=== PATIENT | male | born 1955 | race Caucasian/White ===

== ENCOUNTER 2016-04-08 18:01 | Inpatient (IN) ==
[2016-04-08] MEDS ORDERED: IOPAMIDOL 100 ML BOTTLE IJ ONE (18:02)
[2016-04-08] MEDS ORDERED: IPRATROPIUM/ALBUTEROL 3 ML AMPUL.NEB NEB ONE (18:35)
[2016-04-08] MEDS ORDERED: 0.9 % SODIUM CHLORIDE 1,000 ML IV ONE (18:35)
[2016-04-08] MEDS ORDERED: VANCOMYCIN 1,000 MG in 0.9 % SODIUM CHLORIDE 250 ML IV ONE (18:37)
[2016-04-08] MEDS ORDERED: PIPERACILLIN SODIUM/TAZOBACTAM 3.375 GM in DEXTROSE 5% IN WATER 50 ML IV SCH ×2 (18:45→23:22)
[2016-04-08] MEDS ORDERED: DEXTROSE 5% IN WATER 1,000 ML IV SCH (19:00)
[2016-04-08] MEDS ORDERED: PIPERACILLIN SODIUM/TAZOBACTAM 3.375 GM VIAL IV ONE (19:12)
[2016-04-08 19:37] LABS: Basophils # (Auto) 0.1 K/mcL (0.0-0.3); Basophils % (Auto) 0.4 % (0.0-2.0); Eosinophils # (Auto) 0.3 K/mcL (0.0-0.7); Eosinophils % (Auto) 1.7 % (0.0-7.0); Granulocytes % (Auto) 68.9 % (38.0-78.0); Lymphocytes # (Auto) 4.2 K/mcL (1.5-4.8); Lymphocytes % (Auto) 22.5 % (15.5-49.0); Mean Cell Volume 79.9 fL (80.0-100.0); Mean Corpuscular Hemoglobin 24.8 pg (26.0-34.0); Monocytes # (Auto) 1.2 K/mcL (0.1-0.9); Monocytes % (Auto) 6.5 % (1.0-9.0); Platelet Count 495 K/mcL (140-440); RBC 4.67 M/mcL (4.50-5.90)
[2016-04-08 20:09] LABS: ALT/SGPT 46 U/l (0-40); Albumin 3.6 gm/dL (3.2-5.2); Albumin/Globulin Ratio 0.7 (1.0-2.3); Alkaline Phosphatase 90 U/L (39-117); Blood Urea Nitrogen 60 mg/dl (8-23); Lipase 35 U/L (7-60)
--- NOTE | 2016-04-08 20:33 | Emergency Department Note ---
General Adult HPI - General Chief complaint: Shortness of Breath/Dyspnea Stated complaint: pne, weakness Time Seen by Provider: 04/08/16 18:11 Source: family, EMS Mode of arrival: EMS Limitations: altered mental status - History of Present Illness HPI Narrative: 60-year-old male who came here from [facility] in [place] with a fever of 101.6. He was initially seen on the first of the month and was felt to have pneumonia. He has not been getting better on antibiotics. Notable shortness of breath occulta controlling secretions wheezing and upper airway rattle. Some diarrhea is reported. No nausea or vomiting all history is from his mother and sister, the patient is nonverbal but can answer yes or no questions by moving his head or using fingers - Related Data Home Medications Medication Instructions Recorded Confirmed Azithromycin [Zithromax] 200 mg G-TUBE QAMAC 04/08/16 04/08/16 Bisacodyl [Dulcolax] 10 mg NV PRN PRN 04/08/16 04/08/16 Cholecalciferol (Vitamin D3) 4,000 unit G-TUBE DAILY 04/08/16 04/08/16 [Vitamin D3] Doxazosin [Cardura] 2 mg G-TUBE HS 04/08/16 04/08/16 Furosemide [Lasix] 40 mg G-TUBE DAILY 04/08/16 04/08/16 Glucagon,Human Recombinant 1 mg IM PRN PRN 04/08/16 04/08/16 [Glucagon Emergency Kit] HYDROcodone/ACETAMINOPHEN [[place] 1 each G-TUBE Q4HP PRN 04/08/16 04/08/16 10-325 Tablet] Insulin Glargine, Human [Lantus] 30 unit SQ DAILY 04/08/16 04/08/16 Insulin Regular, Human [HumuLIN R] 0 unit SQ Q6HRT PRN 04/08/16 04/08/16 Insulin Regular, Human [HumuLIN R] 7 unit SQ Q6HRT 04/08/16 04/08/16 Ipratropium/Albuterol [Duoneb] 3 ml NEB Q4HP PRN 04/08/16 04/08/16 Magnesium Hydroxide [Milk of 30 ml G-TUBE DAILY PRN 04/08/16 04/08/16 Magnesia] Menthol/Zinc Oxide [Calmoseptine 3.5 gm TP TID PRN 04/08/16 04/08/16 Ointment Packet] Metoprolol Tartrate 50 mg G-TUBE TID 04/08/16 04/08/16 Na Phos,M-B/Na Phos,Di-Ba [Fleets 1 dose NV PRN PRN 04/08/16 04/08/16 Adult] Nut.tx.gluc.intoler,Lac-Fr,Soy 474 ml G-TUBE TID 04/08/16 04/08/16 [Glucerna 1 Leno] Omeprazole 20 mg G-TUBE DAILY 04/08/16 04/08/16 Polyethylene Glycol 3350 [Miralax] 17 gm G-TUBE DAILY 04/08/16 04/08/16 Pravastatin [Pravachol] 20 mg PO HS 04/08/16 04/08/16 Sennosides [Senna] 8.8 mg G-TUBE BID 04/08/16 04/08/16 predniSONE [Prednisone] 5 mg G-TUBE DAILY 04/08/16 04/08/16 risperiDONE [Risperidone] 0.25 mg G-TUBE DAILY 04/08/16 04/08/16 Allergies Allergy/AdvReac Type Severity Reaction Status Date / Time latex [LATEX] Allergy Mild RASH Verified 03/20/16 16:42 amantadine AdvReac Unknown Hallucinati Verified 03/20/16 16:42 ng oseltamivir AdvReac Unknown Hallucinati Verified 03/20/16 16:42 ons Review of Systems Limitations: ROS unobtainable due to patients medical condition Past Medical History - Past Medical History Source: old records reviewed, obtained from family Medical history: Reports: asthma, COPD, dementia, diabetes, GERD, hyperlipidemia , hypertension, seizures, TIA, other (TBI, AAA, Pancreatic cyst, pressure ulcer) Surgical history ED: Reports: cholecystectomy, other (pancreatic tube) - Social History smoking status: Former smoker Alcohol use: Reports: None (does not drink now had a history of heavy usage of alcohol. in past. Quit 10 y ago) Drug use: Reports: none Physical Exam Normocephalic atraumatic. Conjunctiva somewhat bleary with yellowish eye discharge bilaterally. Moving eyes normally. Patient is nonverbal but does respond some And interacts with eyes and with hands and head movements. Audible nasal congestion without discharge. Oropharynx is dry; mouth breather. Suctioning got approximately 400 mL secretions. Improved respirations after this. Neck is supple without lymphadenopathy or thyromegaly. Heart is regular rate and rhythm. Lungs with rales and wheezes bilaterally worse to the [place]. Abdomen soft nontender overweight. Pancreatic drainage tube is in place with minimal redness and discharge around the opening. Trace to +1 pedal edema bilaterally. Right foot with bandage over pressure ulcer. +2 radial pulse. Alert. Neuro assessment noted as above - General Limitations: altered mental status Course Vital Signs Temperature 99.9 F H 04/08/16 18:04 Pulse Rate 124 H 04/08/16 18:04 Respiratory Rate 20 04/08/16 18:04 Blood Pressure 143/76 04/08/16 18:04 Pulse Oximetry (%) 92 04/08/16 18:04 Temperature 99.9 F H 04/08/16 18:04 Pulse Rate 117 H 04/08/16 20:23 Respiratory Rate 28 H 04/08/16 20:23 Blood Pressure 125/78 04/08/16 20:23 Pulse Oximetry (%) 95 04/08/16 20:23 Medical Decision Making - Medical Records Medical records reviewed: Yes I reviewed the patient's medical records. Reviewed records from nursing facility - Lab Data Lab results reviewed: Yes I reviewed the patient's lab results. Result diagrams: 04/08/16 18:36 04/08/16 18:36 Lab Results 04/08/16 04/08/16 04/08/16 Range/Units 18:36 18:36 18:36 WBC 18.7 H (4.5-11.0) K/mcL RBC 4.67 (4.50-5.90) M/mcL Hgb 11.6 L (13.5-16.5) g/dL Hct 37.3 L (41.0-55.0) % POC Hct 38.0 L (41.0-55.0) % MCV 79.9 L (80.0-100.0) fL MCH 24.8 L (26.0-34.0) pg MCHC 31.0 (31.0-36.0) g/dL RDW 21.0 H (11.5-14.5) % Plt Count 495 H (140-440) K/mcL MPV 9.3 (7.4-10.4) fL Gran % 68.9 (38.0-78.0) % Lymph % (Auto) 22.5 (15.5-49.0) % [place] % (Auto) 6.5 (1.0-9.0) % Eos % (Auto) 1.7 (0.0-7.0) % Baso % (Auto) 0.4 (0.0-2.0) % Gran # 12.9 H (1.8-8.0) K/mcL Lymph # 4.2 (1.5-4.8) K/mcL [place] # 1.2 H (0.1-0.9) K/mcL Eos # 0.3 (0.0-0.7) K/mcL Baso # 0.1 (0.0-0.3) K/mcL VBG Lactic Acid 1.9 (0.5-2.2) mmol/L POC Sodium 159 H (133-145) mmol/L Sodium 156 H (133-145) mmol/L POC Potassium 4.2 (3.3-5.1) mmol/L Potassium 4.2 (3.3-5.1) mmol/L POC Chloride 116 H (96-108) mmol/L Chloride 112 H (96-108) mmol/L Carbon Dioxide 29 (22-30) mmol/L POC Total CO2 33 H (22-30) mmol/L Anion Gap 15.0 (8-16) POC BUN 55 H (8-23) mg/dl BUN 60 H (8-23) mg/dl Creatinine 1.1 (0.7-1.2) mg/dl POC Creatinine 1.2 (0.7-1.2) mg/dl GFR Calculation 72 Glucose 138 H (70-105) mg/dL POC Glucose 141 H (70-105) mg/dL Osmolality (280-300) mOSM/kg Calcium 10.0 (8.6-10.4) mg/dl POC WB Ioniz Calcium 1.19 (1.16-1.32) mmol/L Total Bilirubin 0.2 (0.0-1.0) mg/dL AST 38 H (0-37) U/l ALT 46 H (0-40) U/l Alkaline Phosphatase 90 (39-117) U/L Total Protein 9.1 H (5.9-8.4) gm/dL Albumin 3.6 (3.2-5.2) gm/dL Globulin 5.5 H (2.2-3.7) gm/dL Albumin/Globulin Ratio 0.7 L (1.0-2.3) Lipase 35 (7-60) U/L Urine Osmolality (80-1000) mOsm/kg Influenza A (Rapid) Influenza B (Rapid) 04/08/16 04/08/16 04/08/16 Range/Units 18:36 19:20 20:00 WBC (4.5-11.0) K/mcL RBC (4.50-5.90) M/mcL Hgb (13.5-16.5) g/dL Hct (41.0-55.0) % POC Hct (41.0-55.0) % MCV (80.0-100.0) fL MCH (26.0-34.0) pg MCHC (31.0-36.0) g/dL RDW (11.5-14.5) % Plt Count (140-440) K/mcL MPV (7.4-10.4) fL Gran % (38.0-78.0) % Lymph % (Auto) (15.5-49.0) % [place] % (Auto) (1.0-9.0) % Eos % (Auto) (0.0-7.0) % Baso % (Auto) (0.0-2.0) % Gran # (1.8-8.0) K/mcL Lymph # (1.5-4.8) K/mcL [place] # (0.1-0.9) K/mcL Eos # (0.0-0.7) K/mcL Baso # (0.0-0.3) K/mcL VBG Lactic Acid (0.5-2.2) mmol/L POC Sodium (133-145) mmol/L Sodium (133-145) mmol/L POC Potassium (3.3-5.1) mmol/L Potassium (3.3-5.1) mmol/L POC Chloride (96-108) mmol/L Chloride (96-108) mmol/L Carbon Dioxide (22-30) mmol/L POC Total CO2 (22-30) mmol/L Anion Gap (8-16) POC BUN (8-23) mg/dl BUN (8-23) mg/dl Creatinine (0.7-1.2) mg/dl POC Creatinine (0.7-1.2) mg/dl GFR Calculation Glucose (70-105) mg/dL POC Glucose (70-105) mg/dL Osmolality 347 H (280-300) mOSM/kg Calcium (8.6-10.4) mg/dl POC WB Ioniz Calcium (1.16-1.32) mmol/L Total Bilirubin (0.0-1.0) mg/dL AST (0-37) U/l ALT (0-40) U/l Alkaline Phosphatase (39-117) U/L Total Protein (5.9-8.4) gm/dL Albumin (3.2-5.2) gm/dL Globulin (2.2-3.7) gm/dL Albumin/Globulin Ratio (1.0-2.3) Lipase (7-60) U/L Urine Osmolality 632 (80-1000) mOsm/kg Influenza A (Rapid) Presumed negative Influenza B (Rapid) Presumed negative rterial blood gas shows pH of 7.51PCO2 44 PO2 65 on 2-1/2 Lpm O2 nasal cannula - Radiology Data Radiology results reviewed: Yes I reviewed the patient's radiology results. CT chest with contrast shows bilateral pneumonia Disposition Clinical Impression: Hypernatremia Pneumonia Qualifiers: Pneumonia type: due to unspecified organism Laterality: bilateral Lung location : lower lobe of lung Qualified Code(s): J18.9 - Pneumonia, unspecified organism Summary: Started on oxygen, blood cultures ordered and then antibiotics- noted history of allergies. ABG shows some hyperventilation and hypoxia. CT scan shows bilateral pneumonia Initial labs show hypernatremia so freewater is given IV slowly. Discussed with Dr. chacon who agreed to accept the patient in transfer for ICU care Disposition: Xfer As Inpt ([facility]) Condition: Critical Referrals: Rosa Mccormick MD [Primary Care Provider] - Wayne Chacon MD [Physician] -
[2016-04-08] MEDS ORDERED: HYDROcodone/APAP 10/325MG TABLET PO ONE (21:01)
[2016-04-08] MEDS ORDERED: HYDROcodone/APAP 5/325MG TABLET PO ONE (21:19)
--- NOTE | 2016-04-08 22:10 | Internal Med History&Physical ---
Medical - H&P: HPI Patient information: Note initiated : 04/08/16 at 10:03 pm Service Date, if different from initiated Date: [] Patient: Amie Merchant a 60 y/o M admitted on for pne, weakness. Chief Complaint: [] History of present illness: Mr. 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 The patient has had a very long and complex course, starting his last admission in this facility, where he was admitted for acute pancreatitis, and was in ARDS respiratory failure, requiring transfer to MICU at [facility], He had a prolonged course in that facility there, after which he was transferred to [facility]. He is PEG depended on his feeds, and he came back home in January. He was at home for a few days, but was sick again, and was noted to have a pancreatic abscess? and admitted again in [place] where a abdominal drain was placed. He was supposed to go for follow up 2 weeks ago, but was not able to go due to lack of transportation for follow up. AFter his pancreatic abscess, he was transferred to [place] for rehab at [facility] in [place]. The patient presented here with PNA approximately 2 weeks ago, where he was given bactrim. He was also not ed to have diarrhea by his family for nearly 2 weeks at the alf. His condition was detoriating gradually when today he was noted to be febrile and was therefore transferred here. I reviwed his medical history with his sister and his mother who have been care givers for him. The patient is non verbal, but can understand us, and can follow simple commands. The patient in the ER was not ed to be tachycardic 130, tachypneic 28-30 , low oxygen saturation needing 3 L oxygen. The patients lab work was significant for elevated wbc count, hypernatremia. Patient was therefore admitted to the hospital for further management. The patient notes he does not feel well, and only points to his abdomen on asking about pain. ROS unobtainable: due to mental status Medical - H&P: [facility] Medical history: Medical History Sepsis (Acute) Community acquired pneumonia (Acute) Pneumonia (Acute) Pancreatitis (Acute) Sepsis (Acute) Septic shock (Acute) PEG tube malfunction (Acute) Postop check (Acute) Pancreatitis (Acute) Hypernatremia (Acute) Surgical history: pancreatic abscess/ drain in place 03/13 sayre. 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, TBI in 1998 due to head injury Medical - H&P: Meds Home Medications Medication Instructions Recorded Confirmed Type Azithromycin [Zithromax] 200 mg G-TUBE QAMAC 04/08/16 04/08/16 History Bisacodyl [Dulcolax] [address] PRN PRN 04/08/16 04/08/16 History Cholecalciferol (Vitamin D3) 4,000 unit G-TUBE DAILY 04/08/16 04/08/16 History [Vitamin D3] Doxazosin [Cardura] 2 mg G-TUBE HS 04/08/16 04/08/16 History Furosemide [Lasix] 40 mg G-TUBE DAILY 04/08/16 04/08/16 History Glucagon,Human Recombinant 1 mg IM PRN PRN 04/08/16 04/08/16 History [Glucagon Emergency Kit] HYDROcodone/ACETAMINOPHEN [[place] 1 each G-TUBE Q4HP PRN 04/08/16 04/08/16 History 10-325 Tablet] Insulin Glargine, Human [Lantus] 30 unit SQ DAILY 04/08/16 04/08/16 History Insulin Regular, Human [HumuLIN R] 0 unit SQ Q6HRT PRN 04/08/16 04/08/16 History Insulin Regular, Human [HumuLIN R] 7 unit SQ Q6HRT 04/08/16 04/08/16 History Ipratropium/Albuterol [Duoneb] 3 ml NEB Q4HP PRN 04/08/16 04/08/16 History Magnesium Hydroxide [Milk of 30 ml G-TUBE DAILY PRN 04/08/16 04/08/16 History Magnesia] Menthol/Zinc Oxide [Calmoseptine 3.5 gm TP TID PRN 04/08/16 04/08/16 History Ointment Packet] Metoprolol Tartrate 50 mg G-TUBE TID 04/08/16 04/08/16 History Na Phos,M-B/Na Phos,Di-Ba [Fleets [address] PRN PRN 04/08/16 04/08/16 History Adult] Nut.tx.gluc.intoler,Lac-Fr,Soy 474 ml G-TUBE TID 04/08/16 04/08/16 History [Glucerna 1 Leno] Omeprazole 20 mg G-TUBE DAILY 04/08/16 04/08/16 History Polyethylene Glycol 3350 [Miralax] 17 gm G-TUBE DAILY 04/08/16 04/08/16 History Pravastatin [Pravachol] 20 mg PO HS 04/08/16 04/08/16 History Sennosides [Senna] 8.8 mg G-TUBE BID 04/08/16 04/08/16 History predniSONE [Prednisone] 5 mg G-TUBE DAILY 04/08/16 04/08/16 History risperiDONE [Risperidone] 0.25 mg G-TUBE DAILY 04/08/16 04/08/16 History Allergies Allergy/AdvReac Type Severity Reaction Status Date / Time latex [LATEX] Allergy Mild RASH Verified 03/20/16 16:42 amantadine AdvReac Unknown Hallucinati Verified 03/20/16 16:42 ng oseltamivir AdvReac Unknown Hallucinati Verified 03/20/16 16:42 ons Medical - H&P: Exam - Constitutional Vitals: Temp Pulse Resp BP Pulse Ox 99.9 F H 114 H 28 H 130/77 96 04/08/16 18:04 04/08/16 21:17 04/08/16 20:23 04/08/16 21:17 04/08/16 21:17 General appearance: cooperative, no acute distress - Head Head exam: Present: atraumatic, normocephalic - Eye Eye exam: Absent: periorbital swelling, periorbital tenderness, scleral icterus Pupils: Present: PERRL - ENT ENT exam: Present: mucous membranes dry - Neck Neck exam: Present: normal inspection - Respiratory Additional comments: air entry equal on both sides bibasilar mild crackles poor air entry and pronged expiration, no wheezing noted. no rhonchi. - Cardiovascular Cardiovascular exam: Present: normal rate and rhythm, +S1, +S2, tachycardia - GI/Abdominal Additional comments: abdomen, distended, not sure if basline One drain with brownish discharged noted, G tube in place ABdomen soft but tender to palpation especially in the epigastric, left flank regions. Hypoactive bowel sounds. - Extremities Exam Additional comments: left leg has a decubititus ulcer on the left leg. righ leg no ulcerations noted. - Neurological Exam Additional comments: awake, follows you obeys commmands like grasp fingers, unable to move his legs. Medical - H&P: Reslt - Labs CBC & Chem 7: 04/08/16 18:36 04/08/16 18:36 Labs: Short CBC 04/08/16 Range/Units 18:36 WBC 18.7 H (4.5-11.0) K/mcL Hgb 11.6 L (13.5-16.5) g/dL Hct 37.3 L (41.0-55.0) % Plt Count 495 H (140-440) K/mcL BMP 04/08/16 18:36 Sodium 156 H Potassium 4.2 Chloride 112 H Carbon Dioxide 29 BUN 60 H Creatinine 1.1 Glucose 138 H Calcium 10.0 Liver Function 04/08/16 Range/Units 18:36 Total Bilirubin 0.2 (0.0-1.0) mg/dL AST 38 H (0-37) U/l ALT 46 H (0-40) U/l Alkaline Phosphatase 90 (39-117) U/L Albumin 3.6 (3.2-5.2) gm/dL Medical - H&P: A/P (1) Severe sepsis Current visit: Yes Status: Acute (2) HCAP (healthcare-associated pneumonia) Current visit: Yes Status: Acute (3) Pancreatic abscess Current visit: Yes Status: Acute (4) Diabetes mellitus Current visit: Yes Status: Acute (5) Diarrhea Current visit: Yes Status: Acute (6) Hypernatremia Current visit: Yes Status: Acute A/P narrative hcap pna/ severe sepsis/ Acute hypoxic respiratory failure The patient presents with bilateral Pneumonia on CT chest, this is Hcap pna due to NH status and recent hospitalization. [place] score of 16, mortality of 25% he will hydrated with normal saline, BP is stable at this point. IV vancomycin and zosyn. Await cultures, flu is negative. Oxygen supplementation, ok to intubate, ok for bipap support, family and patient does not want chest compresions. Gentle hydration given his cardiomyopathy status. COPD H/o copd and prolonged exp phase, given his condition, will treat as copd exacerbation, duonebs, abx and steroids, on Iv solumedrol Hypernatremia To be treated with IV resusitation, Low urin sodium suggest volume depletion, will monitor sodium level after adequate volume repletion. It seems that patient had diarrhea, as well was on lasix in the [place] which resulted in hypernatremia. Diarrhea R/o Cdiff On reviewing his home meds, there are multiple medications for stool sofners, not sure if they were scheuled medication, but monitor for now Pancreatic abscess/ s/p surgery ,adn drain inp lace, which is actively draining , Plan to get a CT scan abdomen and pelvis in AM to assess this further, pt has already missed his appointment at [facility]. CHF, LVEF 25-30%, hold meds for now, bb and diuretic,s resume once more stable. DM, continue lantus, monitor finger stick q 6 hrs with sliding scale. DVT lovenox NPO for now, Dietary consult for G tube feeding.
[2016-04-08 23:01] LABS: Appearance,Urine CLEAR; Bacteria,Urine 0 /hpf (0); Bilirubin,Urine NEG (NEG); Color,Urine YELLOW; Glucose,Urine (UA) NEGATIVE (NEG); Leukocyte Esterase,Urine NEG /uL (NEG); Nitrate,Urine NEG (NEG); Protein,Urine 100 mg/dL (NEG); Specific Gravity,Urine 1.023 (1.000-1.035); Urine Blood NEG mg/dL (<0.03); Urine Granular Cast 1 /lpf (0); Urine RBC 9 /hpf (0-1); Urine Squamous Epithelial Cell < 1 /hpf (0-4); Urine Transitional Epi Cells < 1 /hpf (0-2); Urine WBC 3 /hpf (0-4); Urobilinogen,Urine NEG (NEG)
[2016-04-08] MEDS ORDERED: ACETAMINOPHEN 650 MG SUPP.RECT PR PRN (23:22)
[2016-04-08] MEDS ORDERED: PROMETHAZINE 25 MG/ML VIAL IV PRN (23:22)
[2016-04-08] MEDS ORDERED: ACETAMINOPHEN 325 MG TABLET PO PRN (23:22)
[2016-04-08] MEDS ORDERED: ONDANSETRON 4 MG/2 ML VIAL IV PRN (23:22)
[2016-04-08] MEDS ORDERED: NALOXONE HCL 0.4 MG/ML VIAL IV PRN (23:22)
[2016-04-08] MEDS ORDERED: BISACODYL 10 MG SUPP.RECT PR PRN (23:22)
[2016-04-08] MEDS ORDERED: DEXTROSE 50% 50 ML VIAL IV PRN (23:22)
[2016-04-09] MEDS: 0.9 % SODIUM CHLORIDE 1,000 ML IV SCH ×2 (00:30→08:03)
[2016-04-09 01:14] LABS: ALT/SGPT 44 U/l (0-40); Albumin 3.2 gm/dL (3.2-5.2); Albumin/Globulin Ratio 0.7 (1.0-2.3); Alkaline Phosphatase 77 U/L (39-117); Bilirubin,Direct < 0.2 mg/dL (0.0-0.3); Blood Urea Nitrogen 58 mg/dl (8-23); Gamma Glutamyl Transpeptidase 43 U/L (8-61); Magnesium 2.4 mg/dL (1.6-2.5); Phosphorous 4.9 mg/dL (2.7-4.5); Uric Acid 10.2 mg/dL (2.5-8.0)
[2016-04-09] MEDS ORDERED: methylPREDNISolone SOD SUCC 125 MG/2 ML VIAL ONE (01:46)
[2016-04-09] MEDS ORDERED: PIPERACILLIN SODIUM/TAZOBACTAM 3.375 GM VIAL IV ONE (01:46)
[2016-04-09] MEDS: PIPERACILLIN SODIUM/TAZOBACTAM 3.375 GM in DEXTROSE 5% IN WATER 50 ML IV SCH ×5 (02:47→17:43)
[2016-04-09] MEDS: IPRATROPIUM/ALBUTEROL 3 ML AMPUL.NEB NEB SCH ×4 (02:59→19:58)
[2016-04-09] MEDS ORDERED: IPRATROPIUM/ALBUTEROL 3 ML AMPUL.NEB NEB ONE (03:11)
[2016-04-09] MEDS: methylPREDNISolone SOD SUCC 40 MG/ML VIAL IV SCH ×4 (03:29→21:36)
[2016-04-09] MEDS: INSULIN LISPRO 1 UNIT/0.01 ML UNIT SQ SCH ×4 (03:33→17:55)
[2016-04-09] MEDS: 0.9 % SODIUM CHLORIDE 10 ML SYRINGE IV SCH ×4 (03:36→21:38)
[2016-04-09] MEDS ORDERED: INSULIN LISPRO 1 UNIT/0.01 ML UNIT SQ ONE ×2 (03:44→06:29)
[2016-04-09 06:35] LABS: Basophils # (Auto) 0.1 K/mcL (0.0-0.3); Basophils % (Auto) 0.6 % (0.0-2.0); Eosinophils # (Auto) 0.3 K/mcL (0.0-0.7); Eosinophils % (Auto) 1.9 % (0.0-7.0); Granulocytes % (Auto) 72.3 % (38.0-78.0); Lymphocytes # (Auto) 3.3 K/mcL (1.5-4.8); Lymphocytes % (Auto) 20.1 % (15.5-49.0); Mean Cell Volume 81.4 fL (80.0-100.0); Mean Corpuscular HGB Conc 30.3 g/dL (31.0-36.0); Mean Corpuscular Hemoglobin 24.7 pg (26.0-34.0); Monocytes # (Auto) 0.8 K/mcL (0.1-0.9); Monocytes % (Auto) 5.1 % (1.0-9.0); Platelet Count 429 K/mcL (140-440); RBC 4.09 M/mcL (4.50-5.90); Red Cell Distribution Width 21.1 % (11.5-14.5)
[2016-04-09 06:52] LABS: ALT/SGPT 42 U/l (0-40); Albumin/Globulin Ratio 0.7 (1.0-2.3); Alkaline Phosphatase 76 U/L (39-117); Bilirubin,Direct < 0.2 mg/dL (0.0-0.3); Blood Urea Nitrogen 52 mg/dl (8-23); Gamma Glutamyl Transpeptidase 43 U/L (8-61); Magnesium 2.3 mg/dL (1.6-2.5); Phosphorous 4.5 mg/dL (2.7-4.5); Uric Acid 9.6 mg/dL (2.5-8.0)
--- NOTE | 2016-04-09 08:02 | Cat Scan Report ---
CLINICAL INFORMATION: Pneumonia and weakness FINDINGS: There is a moderate-sized densely consolidating alveolar infiltrate in the right lower lobe. There are multiple air bronchograms in this region. A milder consolidating infiltrate is present posteriorly medially in the left lower lobe which also contains air bronchograms. There is also a small area of consolidated lung parenchyma in the posterior segment of the right upper lobe, abutting the major fissure. A more subtle alveolar infiltrate is present posteriorly in the left upper lobe. A few small scattered bulla. No pleural effusion is present. A few benign-appearing reactive lymph nodes are present in the mediastinum. Central pulmonary arteries are normal without evidence of emboli. The aorta is normal in caliber. Heart size is normal. There is a moderate amount calcified plaque in the left anterior descending coronary artery with smaller plaques in the circumflex. The left lobe of the liver is enlarged and bulbous. Gallbladder has been removed. There is a percutaneous drainage catheter in the distal body of the stomach. Immediately posterior to the stomach and along the anterior border of the pancreas there is a complex abscess measuring 2.7 x 3.0 cm. It contains several small bubbles of air. This has diminished in size since prior study done at [facility] on 03/07/16. The full extent of this abscess goes beyond the field of view of the chest CT. IMPRESSION: Moderate bilateral pneumonia with the greatest involvement in the right lower lobe Atherosclerotic coronary artery disease Shrinking pancreatic abscess Interpreted and Authenticated by: Miguel Hutchinson 04/09/16
[2016-04-09] MEDS ORDERED: risperiDONE 0.25 MG TABLET PO SCH (09:00)
[2016-04-09] MEDS ORDERED: VITAMIN D3 1,000 UNIT TABLET PO SCH (09:00)
--- NOTE | 2016-04-09 10:35 | Cat Scan Report ---
History: Follow-up pancreatic abscess Findings: The patient was imaged without oral or intravenous contrast. Sagittal and coronal reformats were created. Patient has pneumonia in both lower lobes, right worse than left. This was described in full detail on the chest CT done on 04/08/16. This has not changed. The left lobe of the liver is enlarged and has a bulbous contour. The right lobe is relatively small. Does the patient have cirrhosis? Is no evidence of a liver mass and the bile ducts are nondilated. The spleen is normal in size and homogeneous. There is a percutaneous pigtail catheter placed into the stomach body the stomach. There is some nodular thickening of the wall of the stomach. Along the posterior wall of the body and involving the anterior aspect of the tail the pancreas there is a complex abscess collection or complex pseudocyst which measures 2 x 4 x 7 cm. Contains multiple bubbles of air. Along the lateral aspect of this collection there is a percutaneous pigtail drainage catheter. The collection has diminished in size since the time of the catheter insertion done at [facility] on 03/07/16. The head neck and body the pancreas are noninflamed. No ascites or free intraperitoneal air are present. There is a nonobstructing 1.5 mm calculus posteriorly in the lower third of left kidney. There is some residual contrast in the kidney following yesterday CT scan. The gallbladder is been removed. The bile ducts are nondilated. The adrenals are normal. Scattered plaques are present along the wall of the aorta and at the origins of the renal arteries. There is no adenopathy. Impression: 2 x 4 x 7 cm complex collection arising from the tail the pancreas extending to the posterior wall of the body of the stomach. This may be an abscess or complex pseudocyst. It has improved over the past one month. Bibasilar pneumonia Interpreted and Authenticated by: Miguel Hutchinson 04/09/16
--- NOTE | 2016-04-09 10:59 | Internal Med Progress Note ---
Medical - PN: Subj Patient information: Note initiated : 04/09/16 at 10:57 am Service Date, if different from initiated Date: [] Patient: Amie Merchant 60 y/o M admitted on 04/08/16 for pne, weakness. Chief Complaint: [] Interval history: The patient seen examined, this AM, no acute overnight events, Vitals reviwed, labs reviwed, microbiology reviwed. Patient is non verbal, and therefore history not available The patient seems to be doing better, his wbc counts is trending down, Na is at 154,improved. Pertinent ROS: due to non verbal status, ROS unavailable Additional PMFSH (Level 3 Only): Pancreatic drain placement on 03/07/16, for abscess. - Constitutional Vitals: Vital Signs Temp Pulse Resp BP Pulse Ox 98.6 F 119 H 22 112/73 95 04/09/16 08:00 04/09/16 08:00 04/09/16 08:00 04/09/16 08:00 04/09/16 06:00 Period Temp Pulse Resp BP Sys/Escobar Pulse Ox Last 24 Hr 98.6 F-98.8 F 100-129 11-115 112-161/64-93 94-96 Intake and Output 04/08/16 04/09/16 04/09/16 21:59 05:59 13:59 Intake Total 50 / 50 1050 / 1050 Output Total 600 / 600 30 / 30 Balance -550 / -550 1020 / 1020 Weight 181 lb Intake & Output: Intake & Output 04/08/16 04/09/16 04/09/16 21:59 05:59 13:59 Intake Total 50 / 50 1050 / 1050 Output Total 600 / 600 30 / 30 Balance -550 / -550 1020 / 1020 Weight 181 lb Intake: IV 50 / 50 1050 / 1050 Sodium Chloride 0.9% 1, 1000 / 1000 000 ml @ 150 mls/hr IV . Q6H40M [facility] Rx#:[id number] Dextrose 5% in Water 50 50 / 50 50 / 50 ml @ 100 mls/hr IV Q6 [facility] with Zosyn 3.375 gm Rx#: [id number] Output: Drainage 30 / 30 30 / 30 Left Upper THAD Drain 30 / 30 30 / 30 Urine Catheter Amount 570 / 570 General appearance: no acute distress - Head Head exam: Present: atraumatic, normal inspection - Eye Eye exam: Present: PERRL. Absent: periorbital swelling, scleral icterus - ENT ENT exam: Present: normal external ear exam - Neck Neck exam: Present: normal inspection - Respiratory Additional comments: Air entry equal on both sides andres basilar coarse crackles no wheezing or stridor - Cardiovascular Cardiovascular exam: Present: normal rate and rhythm, tachycardia - GI/Abdominal Additional comments: Abdomen has poor tone G tube and Drain noted Patient still is tender in the abdomen to palpation, but overal soft abdomen BS present no guarding or rigidity. - Neurological Exam Additional comments: awake, obeys commands, significant quadriparesis - Psychiatric Psychiatric exam: Absent: agitated Medical - PN: Obj Da - Labs CBC & Chem 7: 04/09/16 04:05 04/09/16 04:05 Labs: Abnormal Lab Results 04/09/16 04/09/16 04/08/16 04:05 04:05 23:50 WBC 16.2 H RBC 4.09 L Hgb 10.1 L Hct 33.3 L MCH 24.7 L MCHC 30.3 L RDW 21.1 H Gran # 11.7 H Sodium 154 H 154 H Chloride 112 H 112 H BUN 52 H 58 H Glucose 260 H 243 H Uric Acid 9.6 H 10.2 H Phosphorus 4.9 H ALT 42 H 44 H Albumin 3.0 L Globulin 4.2 H 4.4 H Albumin/Globulin Ratio 0.7 L 0.7 L Meds: Medications Acetaminophen (Tylenol) 650 mg PO Q4-6HP PRN PRN Reason: PAIN/FEVER > 101 Acetaminophen (Tylenol) 650 mg MN Q4-6HP PRN PRN Reason: PAIN/FEVER > 101 Acetaminophen/Hydrocodone Bitart ([place] 10/325mg) 1 tab PO Q4HP PRN PRN Reason: Pain Albuterol/Ipratropium (Duoneb) 3 ml NEB Q6HRT [facility] Last Admin: 04/09/16 07:32 Dose: 3 ml Bisacodyl (Dulcolax) 10 mg [place] PRN PRN PRN Reason: Constipation Dextrose (Dextrose 50%) 0 ml IV UD PRN PRN Reason: Hypoglycemia Diagnostic Test (Pha) (Accu-Chek) 1 each FS Q6 [facility] Last Admin: 04/09/16 06:00 Dose: 1 each Enoxaparin Sodium (Lovenox) 40 mg SQ DAILY [facility] Famotidine (Pepcid) 20 mg IV Q12 [facility] Sodium Chloride (Sodium Chloride 0.9%) 1,000 mls @ 150 mls/hr IV .Q6H40M [facility] Stop: 04/09/16 12:41 Last Admin: 04/09/16 08:03 Dose: 150 mls/hr Piperacillin Sod/Tazobactam (Sod 3.375 gm/ Dextrose) 50 mls @ 100 mls/hr IV Q6 [facility] Last Infusion: 04/09/16 08:40 Dose: Infused Insulin Human Lispro (Humalog) 0 unit SQ Q6 [facility] PRN Reason: Protocol Last Admin: 04/09/16 06:19 Dose: 4 unit Methylprednisolone Sodium Succinate (Solu-Medrol) 40 mg IV Q8 [facility] Last Admin: 04/09/16 08:02 Dose: 40 mg Naloxone HCl (Narcan) 0.1 mg IV Q2MIN PRN PRN Reason: Opiate Reversal Ondansetron HCl (Zofran) 4 mg IV Q4-6HP PRN PRN Reason: Nausea And Vomiting Promethazine HCl (Phenergan) 12.5 mg IV Q4-6HP PRN PRN Reason: Nausea And Vomiting Risperidone (Risperdal) 0.25 mg PO DAILY [facility] Simvastatin (Zocor) 10 mg PO HS [facility] Sodium Chloride (Saline Flush) 10 ml IV Q8 [facility] Last Admin: 04/09/16 08:08 Dose: Not Given Vitamin D (Vitamin D3) 4,000 unit PO DAILY [facility] Medical - PN: A/P - Time Spent With Patient Total time spent is greater than 50% in coordination of care (as documented) at patient's floor/unit and/or counseling patient: 25 - 35 minutes (1) Severe sepsis Status: Acute Assessment and plan: patient still tachypenic and tachycardic, but improving on IV fluids hydration is gentle given h/o cardiomyopathy and stable bp continue to monitor Source is Andres HCAP pna Also has pancreatic abscess. Current Visit: Yes (2) HCAP (healthcare-associated pneumonia) Status: Acute Assessment and plan: on vancomycin and zosyn continue same. tody will be d2/ 7 for antibiotics. Current Visit: Yes (3) Pancreatic abscess Status: Acute Assessment and plan: Ct done and shows pancreatic abcess Drain in place Abdomen is tender to palpate, but Ct does not reveal perotitnitis Will see if we can sent culture from the drainage and ensure that there is adequate coverage. I have called Dr Dale reis in [facility] who seems to be the physician managing the patients pancreatic Abscess for his opinion. Awaiting a call back. Current Visit: Yes (4) Diabetes mellitus Status: Acute Assessment and plan: Insulin per sliding scale, monitor glucose Await dietary recs for G tube feeds Current Visit: Yes (5) Diarrhea Status: Acute Assessment and plan: no diarrhea here Await Cdiff Current Visit: Yes (6) Hypernatremia Status: Acute Assessment and plan: due to dehydration Getting volume via saline Start 250cc free water via G tube q 6 hrs monitor Current Visit: Yes - Narrative A/P Narrative: Diet NPO for now, Await swallow eval to see if he c an tolerate any thing by moutn, ice chips? G tube in place will start feeds once dietary seens DVT hep sq Prognosis guarded. Medical - PN: Qual - VTE Deep Vein Thrombosis/Pulmonary Embolism Present on Admission: No
[2016-04-09] MEDS: ENOXAPARIN 40 MG/0.4 ML SYRINGE SQ SCH (11:16)
[2016-04-09] MEDS: FAMOTIDINE/PF 20 MG/2 ML VIAL IV SCH ×2 (11:16→21:37)
[2016-04-09 16:57] LABS: Prealbumin 17.9 mg/dl (20-40)
[2016-04-09 17:00] LABS: ALT/SGPT 48 U/l (0-40); Albumin 2.8 gm/dL (3.2-5.2); Albumin/Globulin Ratio 0.6 (1.0-2.3); Alkaline Phosphatase 78 U/L (39-117); Bilirubin,Direct < 0.2 mg/dL (0.0-0.3); Blood Urea Nitrogen 45 mg/dl (8-23); Gamma Glutamyl Transpeptidase 46 U/L (8-61); Magnesium 2.3 mg/dL (1.6-2.5); Phosphorous 4.8 mg/dL (2.7-4.5); Uric Acid 8.1 mg/dL (2.5-8.0)
--- NOTE | 2016-04-09 17:41 | General Surgery Consult Note ---
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 Chief Complaint: []Patient is NON VERBAL and in no acute distress. Monitor shows NSR, HD stable and O2 Sats around 90 % He has a productive cough, with intact gag reflex. He has mucoid expectoration. He also has a feeding G tube and a percutaneous drainage tube draining pancreatic necrosis / abscess fluid. This is to be left in situ and patent for as long as necessary. Consult date: 04/09/16 Reason for consult: other (Wound Care consult for presssure ulcer left foot.) Requesting physician: Wayne Hernandez History of present illness: I SAW THIS PATIENT FOR WOUND CARE MANAGEMENT. Pressure ulcer left foot Consultation requested by Dr. Wayne Hernandez. Hospitalist Physician. I examined patient along with Amie ICU Nurse. I have reviewed his notes and input from other Physicians and clinicians. Medications and Allergies Home Medications Medication Instructions Recorded Confirmed Type Azithromycin [Zithromax] 200 mg G-TUBE QAMAC 04/08/16 04/09/16 History Bisacodyl [Dulcolax] 10 mg WA PRN PRN 04/08/16 04/09/16 History Cholecalciferol (Vitamin D3) 4,000 unit G-TUBE DAILY 04/08/16 04/09/16 History [Vitamin D3] Doxazosin [Cardura] 2 mg G-TUBE HS 04/08/16 04/09/16 History Furosemide [Lasix] 40 mg G-TUBE DAILY 04/08/16 04/09/16 History Glucagon,Human Recombinant 1 mg IM PRN PRN 04/08/16 04/09/16 History [Glucagon Emergency Kit] HYDROcodone/ACETAMINOPHEN [Bush 1 - 2 each G-TUBE Q4HP PRN 04/08/16 04/09/16 History 10-325 Tablet] Insulin Glargine, Human [Lantus] 30 unit SQ DAILY 04/08/16 04/09/16 History Insulin Regular, Human [HumuLIN R] 0 unit SQ Q6HRT PRN 04/08/16 04/09/16 History Insulin Regular, Human [HumuLIN R] 7 unit SQ Q6HRT 04/08/16 04/09/16 History Ipratropium/Albuterol [Duoneb] 3 ml NEB Q4HP PRN 04/08/16 04/09/16 History Magnesium Hydroxide [Milk of 30 ml G-TUBE DAILY PRN 04/08/16 04/09/16 History Magnesia] Menthol/Zinc Oxide [Calmoseptine 3.5 gm TP TID PRN 04/08/16 04/09/16 History Ointment Packet] Metoprolol Tartrate 50 mg G-TUBE TID 04/08/16 04/09/16 History Na Phos,M-B/Na Phos,Di-Ba [Fleets 1 dose WA PRN PRN 04/08/16 04/09/16 History Adult] Nut.tx.gluc.intoler,Lac-Fr,Soy 474 ml G-TUBE TID 04/08/16 04/09/16 History [Glucerna 1 Leno] Omeprazole 20 mg G-TUBE DAILY 04/08/16 04/09/16 History Polyethylene Glycol 3350 [Miralax] 17 gm G-TUBE DAILY 04/08/16 04/09/16 History Pravastatin [Pravachol] 20 mg PO HS 04/08/16 04/09/16 History Sennosides [Senna] 8.8 mg G-TUBE BID 04/08/16 04/09/16 History predniSONE [Prednisone] 5 mg G-TUBE DAILY 04/08/16 04/09/16 History risperiDONE [Risperidone] 0.25 mg G-TUBE DAILY 04/08/16 04/09/16 History Allergies Allergy/AdvReac Type Severity Reaction Status Date / Time latex [LATEX] Allergy Mild RASH Verified 03/20/16 16:42 amantadine AdvReac Unknown Hallucinati Verified 03/20/16 16:42 ng oseltamivir AdvReac Unknown Hallucinati Verified 03/20/16 16:42 ons Exam Temp Pulse Resp BP Pulse Ox 98.3 F 112 H 20 150/91 96 04/09/16 16:00 04/09/16 16:00 04/09/16 16:00 04/09/16 16:00 04/09/16 16:00 - General physical appearance well developed, well nourished, moderate distress, other (NON verbal Thick mucoid expectorations. Productive cough, ) - Eyes PERRL, normal ocular movement - ENT normal pinna, normal nares, normal mucosa, no congestion - Head Head exam IM: Present: atraumatic, normal inspection, normocephalic - Neck no masses, no bruits, trachea midline, no venous distension - Cardiovascular Cardiovascular exam IM: Present: normal rate and rhythm - Respiratory normal expansion, normal respiratory effort absent breath sounds: bilateral (at bases) - Abdomen Abdomen: Present: soft, bowel sounds, surgical scars, wound (Gastrostomy and Pancreatic drainage tube) - Integumentary Present: no rash, no growths, other (Pressure necrosis od Left foot around base of 5 th toe. dry, clean and black adherent eschar. NO evidence of other pressure necroses area. patient was log rolled and his back and sacral areas were examined. ) - Neurologic Present: other (Detailed exam not done. NON VERBAL. Some purposeful movement of both upper limbs. ) - Musculoskeletal Present: other (BED CONFINED. No obvious deformites or assymetry. ) - Psychiatric Present: other (Unable to assess) Results - Labs 04/10/16 04:05 04/10/16 04:05 Abnormal lab results 04/08/16 04/09/16 04/09/16 Range/Units 23:50 04:05 04:05 WBC 16.2 H (4.5-11.0) K/mcL RBC 4.09 L (4.50-5.90) M/mcL Hgb 10.1 L (13.5-16.5) g/dL Hct 33.3 L (41.0-55.0) % MCH 24.7 L (26.0-34.0) pg MCHC 30.3 L (31.0-36.0) g/dL RDW 21.1 H (11.5-14.5) % Gran # 11.7 H (1.8-8.0) K/mcL Sodium 154 H 154 H (133-145) mmol/L Chloride 112 H 112 H (96-108) mmol/L BUN 58 H 52 H (8-23) mg/dl Glucose 243 H 260 H (70-105) mg/dL Uric Acid 10.2 H 9.6 H (2.5-8.0) mg/dL Phosphorus 4.9 H (2.7-4.5) mg/dL AST (0-37) U/l ALT 44 H 42 H (0-40) U/l Albumin 3.0 L (3.2-5.2) gm/dL Globulin 4.4 H 4.2 H (2.2-3.7) gm/dL Albumin/Globulin Ratio 0.7 L 0.7 L (1.0-2.3) Prealbumin (20-40) mg/dl 04/09/16 04/09/16 Range/Units 14:30 14:30 WBC (4.5-11.0) K/mcL RBC (4.50-5.90) M/mcL Hgb (13.5-16.5) g/dL Hct (41.0-55.0) % MCH (26.0-34.0) pg MCHC (31.0-36.0) g/dL RDW (11.5-14.5) % Gran # (1.8-8.0) K/mcL Sodium 153 H (133-145) mmol/L Chloride 115 H (96-108) mmol/L BUN 45 H (8-23) mg/dl Glucose 408 H (70-105) mg/dL Uric Acid 8.1 H (2.5-8.0) mg/dL Phosphorus 4.8 H (2.7-4.5) mg/dL AST 42 H (0-37) U/l ALT 48 H (0-40) U/l Albumin 2.8 L (3.2-5.2) gm/dL Globulin 4.5 H (2.2-3.7) gm/dL Albumin/Globulin Ratio 0.6 L (1.0-2.3) Prealbumin 17.9 L (20-40) mg/dl Diabetes panel 04/08/16 04/09/16 04/09/16 Range/Units 23:50 04:05 14:30 Sodium 154 H 154 H 153 H (133-145) mmol/L Potassium 4.4 4.3 4.2 (3.3-5.1) mmol/L Chloride 112 H 112 H 115 H (96-108) mmol/L Carbon Dioxide 28 29 26 (22-30) mmol/L BUN 58 H 52 H 45 H (8-23) mg/dl Creatinine 1.1 1.0 0.9 (0.7-1.2) mg/dl Glucose 243 H 260 H 408 H (70-105) mg/dL Calcium 9.1 8.7 8.7 (8.6-10.4) mg/dl AST 36 34 42 H (0-37) U/l ALT 44 H 42 H 48 H (0-40) U/l Alkaline Phosphatase 77 76 78 (39-117) U/L Total Protein 7.6 7.2 7.3 (5.9-8.4) gm/dL Albumin 3.2 3.0 L 2.8 L (3.2-5.2) gm/dL Triglycerides 109 129 131 (<150) mg/dl Calcium panel 04/08/16 04/09/16 04/09/16 Range/Units 23:50 04:05 14:30 Calcium 9.1 8.7 8.7 (8.6-10.4) mg/dl Phosphorus 4.9 H 4.5 4.8 H (2.7-4.5) mg/dL Albumin 3.2 3.0 L 2.8 L (3.2-5.2) gm/dL Pituitary panel 04/08/16 04/09/16 04/09/16 Range/Units 23:50 04:05 14:30 Sodium 154 H 154 H 153 H (133-145) mmol/L Potassium 4.4 4.3 4.2 (3.3-5.1) mmol/L Chloride 112 H 112 H 115 H (96-108) mmol/L Carbon Dioxide 28 29 26 (22-30) mmol/L BUN 58 H 52 H 45 H (8-23) mg/dl Creatinine 1.1 1.0 0.9 (0.7-1.2) mg/dl Glucose 243 H 260 H 408 H (70-105) mg/dL Calcium 9.1 8.7 8.7 (8.6-10.4) mg/dl Adrenal panel 04/08/16 04/09/16 04/09/16 Range/Units 23:50 04:05 14:30 Sodium 154 H 154 H 153 H (133-145) mmol/L Potassium 4.4 4.3 4.2 (3.3-5.1) mmol/L Chloride 112 H 112 H 115 H (96-108) mmol/L Carbon Dioxide 28 29 26 (22-30) mmol/L BUN 58 H 52 H 45 H (8-23) mg/dl Creatinine 1.1 1.0 0.9 (0.7-1.2) mg/dl Glucose 243 H 260 H 408 H (70-105) mg/dL Calcium 9.1 8.7 8.7 (8.6-10.4) mg/dl Total Bilirubin 0.2 0.3 0.2 (0.0-1.0) mg/dL AST 36 34 42 H (0-37) U/l ALT 44 H 42 H 48 H (0-40) U/l Alkaline Phosphatase 77 76 78 (39-117) U/L Total Protein 7.6 7.2 7.3 (5.9-8.4) gm/dL Albumin 3.2 3.0 L 2.8 L (3.2-5.2) gm/dL All other labs normal. Assessment and Plan (1) Pressure ulcer of left foot PLAN: Conservative management. Mepilex foam border dressing and off load at all times. To continue with other on going management. Will follow this patient whilst he is in hospital. Status: Chronic Priority: Medium Qualifiers: Pressure ulcer stage: unstageable Qualified Code(s): L89.890 - Pressure ulcer of other site, unstageable
[2016-04-09] MEDS: HYDROcodone/APAP 10/325MG TABLET PO PRN (19:31)
[2016-04-09] MEDS: SIMVASTATIN 10 MG TABLET PT SCH (21:37)
[2016-04-09] MEDS: CHLORHEXIDINE GLUCONATE 1 ML ORAL.SOL SWABMOUTH SCH (21:37)
[2016-04-10] MEDS: PIPERACILLIN SODIUM/TAZOBACTAM 3.375 GM in DEXTROSE 5% IN WATER 50 ML IV SCH ×4 (00:14→17:38)
[2016-04-10] MEDS: HYDROcodone/APAP 10/325MG TABLET PO PRN ×5 (00:14→23:57)
[2016-04-10] MEDS: INSULIN LISPRO 1 UNIT/0.01 ML UNIT SQ SCH ×4 (00:15→17:43)
[2016-04-10] MEDS: IPRATROPIUM/ALBUTEROL 3 ML AMPUL.NEB NEB SCH ×4 (05:31→18:16)
[2016-04-10 06:27] LABS: Basophils # (Auto) 0 K/mcL (0.0-0.3); Basophils % (Auto) 0 % (0.0-2.0); Eosinophils # (Auto) 0 K/mcL (0.0-0.7); Eosinophils % (Auto) 0.4 % (0.0-7.0); Granulocytes % (Auto) 79.5 % (38.0-78.0); Lymphocytes # (Auto) 1.4 K/mcL (1.5-4.8); Lymphocytes % (Auto) 14.5 % (15.5-49.0); Mean Corpuscular HGB Conc 31.6 g/dL (31.0-36.0); Mean Corpuscular Hemoglobin 24.9 pg (26.0-34.0); Monocytes # (Auto) 0.6 K/mcL (0.1-0.9); Monocytes % (Auto) 5.6 % (1.0-9.0); Platelet Count 397 K/mcL (140-440); RBC 3.98 M/mcL (4.50-5.90); Red Cell Distribution Width 19.8 % (11.5-14.5)
[2016-04-10] MEDS: 0.9 % SODIUM CHLORIDE 10 ML SYRINGE IV SCH ×3 (06:46→22:06)
[2016-04-10] MEDS: methylPREDNISolone SOD SUCC 40 MG/ML VIAL IV SCH ×3 (06:46→22:05)
[2016-04-10 06:53] LABS: ALT/SGPT 53 U/l (0-40); Albumin 3.1 gm/dL (3.2-5.2); Albumin/Globulin Ratio 0.7 (1.0-2.3); Alkaline Phosphatase 76 U/L (39-117); Bilirubin,Direct < 0.2 mg/dL (0.0-0.3); Blood Urea Nitrogen 43 mg/dl (8-23); Gamma Glutamyl Transpeptidase 46 U/L (8-61); Magnesium 2.4 mg/dL (1.6-2.5); Phosphorous 3.3 mg/dL (2.7-4.5); Uric Acid 7.8 mg/dL (2.5-8.0)
[2016-04-10] MEDS ORDERED: 0.9 % SODIUM CHLORIDE 250 ML IV ONE (07:22)
[2016-04-10] MEDS ORDERED: INSULIN GLARGINE, HUMAN 1 UNIT/0.01 ML SQ SCH (09:00)
[2016-04-10] MEDS: risperiDONE 0.25 MG TABLET PT SCH (09:40)
[2016-04-10] MEDS: CHLORHEXIDINE GLUCONATE 1 ML ORAL.SOL SWABMOUTH SCH ×2 (09:41→22:05)
[2016-04-10] MEDS: ENOXAPARIN 40 MG/0.4 ML SYRINGE SQ SCH (09:41)
[2016-04-10] MEDS: FAMOTIDINE/PF 20 MG/2 ML VIAL IV SCH ×2 (09:41→22:05)
[2016-04-10] MEDS: VITAMIN D3 1,000 UNIT TABLET PT SCH (09:41)
[2016-04-10] MEDS ORDERED: VANCOMYCIN PER PHARMACY IV ONE (12:00)
--- NOTE | 2016-04-10 12:12 | Internal Med Progress Note ---
Medical - PN: Subj Patient information: Note initiated : 04/10/16 at 12:05 pm Service Date, if different from initiated Date: [] Patient: Amie Merchant 60 y/o M admitted on 04/08/16 for Weakness/Pneumonia, Sepsis, Hypoxic Resp Failure. Chief Complaint: [] Interval history: Patient seen examined, no acute overnight events doing well, clinically pt is non verbal for most part due to TBI. He is not getting vancomycin will resume order, but his wbc count is improving, cultures from the Pancreatic suction is growing gram negative bacillus. Blood cultures negative so far. Pertinent ROS: unable due to mental status. - Constitutional Vitals: Vital Signs Temp Pulse Resp BP Pulse Ox 100.3 F H 106 H 16 161/98 93 04/10/16 08:00 04/10/16 11:00 04/10/16 11:00 04/10/16 11:00 04/10/16 11:00 Period Temp Pulse Resp BP Sys/Escobar Pulse Ox Last 24 Hr 97.5 F-100.3 F 102-116 12-20 128-161/6-98 93-99 Intake and Output 04/09/16 04/10/16 04/10/16 21:59 05:59 13:59 Intake Total 470 / 470 135 / 135 450 / 450 Output Total 1147 / 1147 438 / 438 380 / 380 Balance -677 / -677 -303 / -303 70 / 70 Weight 186 lb 8 oz Intake & Output: Intake & Output 04/09/16 04/10/16 04/10/16 21:59 05:59 13:59 Intake Total 470 / 470 135 / 135 450 / 450 Output Total 1147 / 1147 438 / 438 380 / 380 Balance -677 / -677 -303 / -303 70 / 70 Weight 186 lb 8 oz Intake: IV 50 / 50 50 / 50 50 / 50 Dextrose 5% in Water 50 50 / 50 50 / 50 50 / 50 ml @ 100 mls/hr IV Q6 [facility] with Zosyn 3.375 gm Rx#: [id number] GI Tube Flush 420 / 420 85 / 85 400 / 400 Output: Drainage 30 / 30 Left Upper THAD Drain 30 / 30 Urine Catheter Amount 1147 / 1147 408 / 408 380 / 380 - Head Head exam: Present: atraumatic, normal inspection - Eye Eye exam: Absent: periorbital swelling, scleral icterus - ENT ENT exam: Present: mucous membranes dry - Neck Neck exam: Present: normal inspection - Respiratory Additional comments: air entry equal on both sides, bi basilar crackles no wheezing or rhonchi. - Cardiovascular Cardiovascular exam: Present: normal rate and rhythm, tachycardia - GI/Abdominal GI/Abdominal exam: Present: normal bowel sounds, soft, tenderness (at site of g and pancreatic drain tube. ) - Neurological Exam Additional comments: awake, obeys commands mostly non verbal just moves upper extremities, - Psychiatric Psychiatric exam: Absent: agitated - Skin Skin exam: Present: warm. Absent: rash, urticaria Medical - PN: Obj Da - Labs CBC & Chem 7: 04/10/16 04:05 04/10/16 04:05 Labs: Abnormal Lab Results 04/10/16 04/10/16 04/09/16 04:05 04:05 14:30 WBC RBC 3.98 L Hgb 9.9 L Hct 31.4 L MCV 79.0 L MCH 24.9 L MCHC RDW 19.8 H Gran % 79.5 H Lymph % (Auto) 14.5 L Gran # Lymph # 1.4 L Sodium 156 H Chloride 118 H BUN 43 H Glucose 387 H Uric Acid Phosphorus AST 41 H ALT 53 H Albumin 3.1 L Globulin 4.2 H Albumin/Globulin Ratio 0.7 L Prealbumin 17.9 L Triglycerides 153 H 04/09/16 04/09/16 04/09/16 14:30 04:05 04:05 WBC 16.2 H RBC 4.09 L Hgb 10.1 L Hct 33.3 L MCV MCH 24.7 L MCHC 30.3 L RDW 21.1 H Gran % Lymph % (Auto) Gran # 11.7 H Lymph # Sodium 153 H 154 H Chloride 115 H 112 H BUN 45 H 52 H Glucose 408 H 260 H Uric Acid 8.1 H 9.6 H Phosphorus 4.8 H AST 42 H ALT 48 H 42 H Albumin 2.8 L 3.0 L Globulin 4.5 H 4.2 H Albumin/Globulin Ratio 0.6 L 0.7 L Prealbumin Triglycerides 04/08/16 23:50 WBC RBC Hgb Hct MCV MCH MCHC RDW Gran % Lymph % (Auto) Gran # Lymph # Sodium 154 H Chloride 112 H BUN 58 H Glucose 243 H Uric Acid 10.2 H Phosphorus 4.9 H AST ALT 44 H Albumin Globulin 4.4 H Albumin/Globulin Ratio 0.7 L Prealbumin Triglycerides Meds: Medications Acetaminophen (Tylenol) 650 mg PO Q4-6HP PRN PRN Reason: PAIN/FEVER > 101 Acetaminophen (Tylenol) 650 mg OK Q4-6HP PRN PRN Reason: PAIN/FEVER > 101 Acetaminophen/Hydrocodone Bitart ([place] 10/325mg) 1 tab PO Q4HP PRN PRN Reason: Pain Last Admin: 04/10/16 11:24 Dose: 1 tab Albuterol/Ipratropium (Duoneb) 3 ml NEB Q6HRT [facility] Last Admin: 04/10/16 07:44 Dose: 3 ml Bisacodyl (Dulcolax) 10 mg [place] PRN PRN PRN Reason: Constipation Chlorhexidine Gluconate (Peridex) 15 ml [place]AB[place]OUTH BID [facility] Last Admin: 04/10/16 09:41 Dose: 15 ml Dextrose (Dextrose 50%) 0 ml IV UD PRN PRN Reason: Hypoglycemia Diagnostic Test (Pha) (Accu-Chek) 1 each FS Q6 [facility] Last Admin: 04/10/16 11:37 Dose: 1 each Enoxaparin Sodium (Lovenox) 40 mg SQ DAILY [facility] Last Admin: 04/10/16 09:41 Dose: 40 mg Famotidine (Pepcid) 20 mg IV Q12 [facility] Last Admin: 04/10/16 09:41 Dose: 20 mg Piperacillin Sod/Tazobactam (Sod 3.375 gm/ Dextrose) 50 mls @ 100 mls/hr IV Q6 [facility] Last Admin: 04/10/16 11:24 Dose: 100 mls/hr Vancomycin HCl 1,000 mg/ (Sodium Chloride) 250 mls @ 250 mls/hr IV Q12H [facility] Insulin Glargine (Lantus) 30 unit SQ DAILY [facility] Last Admin: 04/10/16 07:37 Dose: 30 unit Insulin Human Lispro (Humalog) 0 unit SQ Q6 [facility] PRN Reason: Protocol Last Admin: 04/10/16 11:39 Dose: 8 unit Methylprednisolone Sodium Succinate (Solu-Medrol) 40 mg IV Q8 [facility] Last Admin: 04/10/16 06:46 Dose: 40 mg Naloxone HCl (Narcan) 0.1 mg IV Q2MIN PRN PRN Reason: Opiate Reversal Ondansetron HCl (Zofran) 4 mg IV Q4-6HP PRN PRN Reason: Nausea And Vomiting Promethazine HCl (Phenergan) 12.5 mg IV Q4-6HP PRN PRN Reason: Nausea And Vomiting Risperidone (Risperdal) 0.25 mg PT DAILY [facility] Last Admin: 04/10/16 09:40 Dose: 0.25 mg Simvastatin (Zocor) 10 mg PT HS [facility] Last Admin: 04/09/16 21:37 Dose: 10 mg Sodium Chloride (Saline Flush) 10 ml IV Q8 [facility] Last Admin: 04/10/16 06:46 Dose: 10 ml Vancomycin HCl (Vancomycin Per Pharmacy) 1 order IV ONCE ONE Stop: 04/10/16 12:01 Vitamin D (Vitamin D3) 4,000 unit PT DAILY [facility] Last Admin: 04/10/16 09:41 Dose: 4,000 unit Medical - PN: A/P - Time Spent With Patient Total time spent is greater than 50% in coordination of care (as documented) at patient's floor/unit and/or counseling patient: (1) Severe sepsis Status: Acute Assessment and plan: patient still tachypenic and tachycardic, but improving wbc normalized on zosyn, supposed to be on vanco, but some how order was dicontnued vs misplaced resume vancomycin. Current Visit: Yes (2) HCAP (healthcare-associated pneumonia) Status: Acute Assessment and plan: on vancomycin and zosyn continue same. tody will be d3/ 7 for zosyn d1 vanco Current Visit: Yes (3) Pancreatic abscess Status: Acute Assessment and plan: Ct done and shows pancreatic abcess Drain in place Abdomen is tender to palpate, but Ct does not reveal perotitnitis culture sent and its growing gram negative bacillus, I have called Dr Dale reis in [facility] who seems to be the physician managing the patients pancreatic Abscess, Current Visit: Yes (4) Diabetes mellitus Status: Acute Assessment and plan: Insulin per sliding scale, monitor glucose resume lantus at 30 units in light of high glucose and monitor closely. Current Visit: Yes (5) Diarrhea Status: Acute Assessment and plan: cdiff negative. Current Visit: Yes (6) Hypernatremia Status: Acute Assessment and plan: due to dehydration, on 250cc free water via G tube q 6 hrs start half NS and monitor sodium Current Visit: Yes - Narrative A/P Narrative: DVT prophylaxis- lovenox Diet via Tube feeds continous feeding for now, in light of aspiration, will consider using bolus feedings in future. Medical - PN: Qual - VTE Deep Vein Thrombosis/Pulmonary Embolism Present on Admission: No
[2016-04-10] MEDS: 0.45 % SODIUM CHLORIDE 1,000 ML IV SCH ×2 (12:19→22:04)
[2016-04-10] MEDS: VANCOMYCIN 1,000 MG in 0.9 % SODIUM CHLORIDE 250 ML IV SCH (13:58)
[2016-04-10 15:18] LABS: Blood Urea Nitrogen 42 mg/dl (8-23)
[2016-04-10] MEDS ORDERED: METOPROLOL TARTRATE 50 MG G-TUBE SCH (21:00)
[2016-04-10] MEDS: SIMVASTATIN 10 MG TABLET PT SCH (22:05)
[2016-04-10] MEDS ORDERED: METOPROLOL TARTRATE 50 MG TABLET ONE (22:06)
[2016-04-11] MEDS: PIPERACILLIN SODIUM/TAZOBACTAM 3.375 GM in DEXTROSE 5% IN WATER 50 ML IV SCH ×5 (00:03→23:53)
[2016-04-11] MEDS: INSULIN LISPRO 1 UNIT/0.01 ML UNIT SQ SCH ×5 (01:00→23:50)
[2016-04-11] MEDS: IPRATROPIUM/ALBUTEROL 3 ML AMPUL.NEB NEB SCH ×4 (01:18→18:49)
[2016-04-11] MEDS: VANCOMYCIN 1,000 MG in 0.9 % SODIUM CHLORIDE 250 ML IV SCH (01:18)
[2016-04-11] MEDS: HYDROcodone/APAP 10/325MG TABLET PO PRN ×2 (06:47→21:17)
[2016-04-11] MEDS: methylPREDNISolone SOD SUCC 40 MG/ML VIAL IV SCH ×3 (06:48→21:16)
[2016-04-11] MEDS: 0.9 % SODIUM CHLORIDE 10 ML SYRINGE IV SCH ×3 (06:49→21:20)
[2016-04-11] MEDS ORDERED: INSULIN LISPRO 1 UNIT/0.01 ML UNIT SQ ONE ×2 (07:07→18:03)
[2016-04-11 07:12] LABS: Basophils # (Auto) 0 K/mcL (0.0-0.3); Basophils % (Auto) 0.1 % (0.0-2.0); Eosinophils # (Auto) 0.1 K/mcL (0.0-0.7); Eosinophils % (Auto) 1.2 % (0.0-7.0); Granulocytes % (Auto) 81.8 % (38.0-78.0); Lymphocytes # (Auto) 1.4 K/mcL (1.5-4.8); Lymphocytes % (Auto) 12.8 % (15.5-49.0); Mean Cell Volume 82.6 fL (80.0-100.0); Mean Corpuscular HGB Conc 29.9 g/dL (31.0-36.0); Mean Corpuscular Hemoglobin 24.7 pg (26.0-34.0); Monocytes # (Auto) 0.5 K/mcL (0.1-0.9); Monocytes % (Auto) 4.1 % (1.0-9.0); Platelet Count 341 K/mcL (140-440); RBC 3.87 M/mcL (4.50-5.90); Red Cell Distribution Width 20.2 % (11.5-14.5)
[2016-04-11 07:36] LABS: ALT/SGPT 60 U/l (0-40); Albumin 2.9 gm/dL (3.2-5.2); Albumin/Globulin Ratio 0.8 (1.0-2.3); Alkaline Phosphatase 63 U/L (39-117); Bilirubin,Direct < 0.2 mg/dL (0.0-0.3); Blood Urea Nitrogen 37 mg/dl (8-23); Gamma Glutamyl Transpeptidase 43 U/L (8-61); Magnesium 2.2 mg/dL (1.6-2.5); Phosphorous 2.8 mg/dL (2.7-4.5); Uric Acid 5.6 mg/dL (2.5-8.0)
[2016-04-11] MEDS ORDERED: METOPROLOL TARTRATE 50 MG TABLET PT SCH (09:00)
[2016-04-11] MEDS: FAMOTIDINE/PF 20 MG/2 ML VIAL IV SCH ×2 (10:05→21:16)
[2016-04-11] MEDS: 0.45 % SODIUM CHLORIDE 1,000 ML IV SCH (10:05)
[2016-04-11] MEDS: VITAMIN D3 1,000 UNIT TABLET PT SCH (10:06)
[2016-04-11] MEDS: ENOXAPARIN 40 MG/0.4 ML SYRINGE SQ SCH (10:06)
[2016-04-11] MEDS: CHLORHEXIDINE GLUCONATE 1 ML ORAL.SOL SWABMOUTH SCH ×2 (10:07→21:18)
[2016-04-11] MEDS: risperiDONE 0.25 MG TABLET PT SCH (10:07)
[2016-04-11] MEDS: INSULIN GLARGINE, HUMAN 1 UNIT/0.01 ML SQ SCH ×2 (10:08→10:11)
--- NOTE | 2016-04-11 11:11 | Internal Med Progress Note ---
Medical - PN: Subj Patient information: Note initiated : 04/11/16 at 11:09 am Service Date, if different from initiated Date: [] Patient: Amie Merchant 60 y/o M admitted on 04/08/16 for Weakness/Pneumonia, Sepsis, Hypoxic Resp Failure. Chief Complaint: [] Interval history: The patient seen examined, no acute overnight events, no acute overnight events, His tachycardia is resolved, BP is stable, and I have started adding his home bp meds one by one. he was much more verbal today, able to answer in one or two words, He is doing much better. Pertinent ROS: Deneis CP, Palpitations Cough present, no shortness of breath Intermittent abdominal pain, responding to pain meds, no nausea or vomiting. - Constitutional Vitals: Vital Signs Temp Pulse Resp BP Pulse Ox 97.0 F L 60 60 H 146/60 100 04/11/16 05:00 04/11/16 09:00 04/11/16 09:30 04/11/16 06:00 04/11/16 09:30 Period Temp Pulse Resp BP Sys/Escobar Pulse Ox Last 24 Hr 97.0 F-98.2 F 60-107 10-60 120-162/60-86 93-100 Intake and Output 04/10/16 04/11/16 04/11/16 21:59 05:59 13:59 Intake Total 1210 / 1210 2611 / 2611 1050 / 1050 Output Total 690 / 690 667 / 667 80 / 80 Balance 520 / 520 1944 / 1944 970 / 970 Weight 186 lb Intake & Output: Intake & Output 04/10/16 04/11/16 04/11/16 21:59 05:59 13:59 Intake Total 1210 / 1210 2611 / 2611 1050 / 1050 Output Total 690 / 690 667 / 667 80 / 80 Balance 520 / 520 1944 / 1944 970 / 970 Weight 186 lb Intake: IV 350 / 350 1300 / 1300 1050 / 1050 Sodium Chloride 0.45% 1, 1000 / 1000 1000 / 1000 000 ml @ 125 mls/hr IV . Q8H [facility] Rx#:[id number] Dextrose 5% in Water 50 100 / 100 50 / 50 50 / 50 ml @ 100 mls/hr IV Q6 [facility] with Zosyn 3.375 gm Rx#: [id number] Sodium Chloride 0.9% 250 250 / 250 250 / 250 ml @ 250 mls/hr IV Q12H [facility] with Vancomycin 1,000 mg Rx#:[id number] Tube Feeding 400 / 400 1001 / 1001 GI Tube Flush 460 / 460 310 / 310 Output: Drainage 20 / 20 30 / 30 Left Upper THAD Drain 20 / 20 30 / 30 Urine Catheter Amount 670 / 670 637 / 637 80 / 80 General appearance: cooperative, no acute distress - Head Head exam: Present: atraumatic, normal inspection - Eye Eye exam: Absent: periorbital swelling, scleral icterus - ENT ENT exam: Present: mucous membranes moist - Neck Neck exam: Present: normal inspection - Respiratory Respiratory exam: Present: normal respiratory exam Additional comments: bibasilar crackes air entry equal on both sides. - Cardiovascular Cardiovascular exam: Present: normal rate and rhythm Additional comments: distant heart sounds. 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 - Skin Skin exam: Present: warm. Absent: rash, urticaria Medical - PN: Obj Da - Labs CBC & Chem 7: 04/11/16 04:10 04/11/16 04:10 Labs: Abnormal Lab Results 04/11/16 04/11/16 04/10/16 04:10 04:10 12:00 WBC 11.2 H RBC 3.87 L Hgb 9.6 L Hct 32.0 L MCV MCH 24.7 L MCHC 29.9 L RDW 20.2 H Gran % 81.8 H Lymph % (Auto) 12.8 L Gran # 9.2 H Lymph # 1.4 L Sodium 151 H 157 H Chloride 115 H 118 H BUN 37 H 42 H Glucose 357 H 410 H Uric Acid Phosphorus AST 43 H ALT 60 H Albumin 2.9 L Globulin Albumin/Globulin Ratio 0.8 L Prealbumin Triglycerides 197 H 04/10/16 04/10/16 04/09/16 04:05 04:05 14:30 WBC RBC 3.98 L Hgb 9.9 L Hct 31.4 L MCV 79.0 L MCH 24.9 L MCHC RDW 19.8 H Gran % 79.5 H Lymph % (Auto) 14.5 L Gran # Lymph # 1.4 L Sodium 156 H Chloride 118 H BUN 43 H Glucose 387 H Uric Acid Phosphorus AST 41 H ALT 53 H Albumin 3.1 L Globulin 4.2 H Albumin/Globulin Ratio 0.7 L Prealbumin 17.9 L Triglycerides 153 H 04/09/16 04/09/16 04/09/16 14:30 04:05 04:05 WBC 16.2 H RBC 4.09 L Hgb 10.1 L Hct 33.3 L MCV MCH 24.7 L MCHC 30.3 L RDW 21.1 H Gran % Lymph % (Auto) Gran # 11.7 H Lymph # Sodium 153 H 154 H Chloride 115 H 112 H BUN 45 H 52 H Glucose 408 H 260 H Uric Acid 8.1 H 9.6 H Phosphorus 4.8 H AST 42 H ALT 48 H 42 H Albumin 2.8 L 3.0 L Globulin 4.5 H 4.2 H Albumin/Globulin Ratio 0.6 L 0.7 L Prealbumin Triglycerides 04/08/16 23:50 WBC RBC Hgb Hct MCV MCH MCHC RDW Gran % Lymph % (Auto) Gran # Lymph # Sodium 154 H Chloride 112 H BUN 58 H Glucose 243 H Uric Acid 10.2 H Phosphorus 4.9 H AST ALT 44 H Albumin Globulin 4.4 H Albumin/Globulin Ratio 0.7 L Prealbumin Triglycerides Meds: Medications Acetaminophen (Tylenol) 650 mg PO Q4-6HP PRN PRN Reason: PAIN/FEVER > 101 Acetaminophen (Tylenol) 650 mg NM Q4-6HP PRN PRN Reason: PAIN/FEVER > 101 Acetaminophen/Hydrocodone Bitart ([place] 10/325mg) 1 tab PO Q4HP PRN PRN Reason: Pain Last Admin: 04/11/16 06:47 Dose: 1 tab Albuterol/Ipratropium (Duoneb) 3 ml NEB Q6HRT [facility] Last Admin: 04/11/16 01:18 Dose: 3 ml Bisacodyl (Dulcolax) 10 mg NM PRN PRN PRN Reason: Constipation Chlorhexidine Gluconate (Peridex) 15 ml SWABMOUTH BID [facility] Last Admin: 04/11/16 10:07 Dose: 15 ml Dextrose (Dextrose 50%) 0 ml IV UD PRN PRN Reason: Hypoglycemia Diagnostic Test (Pha) (Accu-Chek) 1 each FS Q6 [facility] Last Admin: 04/11/16 06:56 Dose: 1 each Enoxaparin Sodium (Lovenox) 40 mg SQ DAILY [facility] Last Admin: 04/11/16 10:06 Dose: 40 mg Famotidine (Pepcid) 20 mg IV Q12 [facility] Last Admin: 04/11/16 10:05 Dose: 20 mg Piperacillin Sod/Tazobactam (Sod 3.375 gm/ Dextrose) 50 mls @ 100 mls/hr IV Q6 [facility] Last Infusion: 04/11/16 06:41 Dose: Infused Vancomycin HCl 1,000 mg/ (Sodium Chloride) 250 mls @ 250 mls/hr IV Q12H [facility] Last Infusion: 04/11/16 02:30 Dose: Infused Insulin Glargine (Lantus) 45 unit SQ DAILY [facility] Last Admin: 04/11/16 10:11 Dose: Not Given Insulin Human Lispro (Humalog) 0 unit SQ Q6 [facility] PRN Reason: Protocol Last Admin: 04/11/16 06:58 Dose: Not Given Methylprednisolone Sodium Succinate (Solu-Medrol) 40 mg IV Q8 [facility] Last Admin: 04/11/16 06:48 Dose: 40 mg Metoprolol Tartrate (Lopressor) 50 mg PT BID [facility] Last Admin: 04/11/16 10:11 Dose: 50 mg Naloxone HCl (Narcan) 0.1 mg IV Q2MIN PRN PRN Reason: Opiate Reversal Ondansetron HCl (Zofran) 4 mg IV Q4-6HP PRN PRN Reason: Nausea And Vomiting Promethazine HCl (Phenergan) 12.5 mg IV Q4-6HP PRN PRN Reason: Nausea And Vomiting Risperidone (Risperdal) 0.25 mg PT DAILY [facility] Last Admin: 04/11/16 10:07 Dose: 0.25 mg Simvastatin (Zocor) 10 mg PT HS [facility] Last Admin: 04/10/16 22:05 Dose: 10 mg Sodium Chloride (Saline Flush) 10 ml IV Q8 [facility] Last Admin: 04/11/16 06:49 Dose: 10 ml Vitamin D (Vitamin D3) 4,000 unit PT DAILY [facility] Last Admin: 04/11/16 10:06 Dose: 4,000 unit Medical - PN: A/P - Time Spent With Patient Total time spent is greater than 50% in coordination of care (as documented) at patient's floor/unit and/or counseling patient: (1) Severe sepsis Status: Acute Assessment and plan: patient tachycadia improved bp stable WBC went up today, will monitor for now. Current Visit: Yes (2) HCAP (healthcare-associated pneumonia) Status: Acute Assessment and plan: on vancomycin and zosyn continue same. tody will be d4/ 7 for zosyn d2 vanco Current Visit: Yes (3) Pancreatic abscess Status: Acute Assessment and plan: Ct done and shows pancreatic abcess Drain in place Abdomen is tender to palpate, but Ct does not reveal perotitnitis culture sent and its growing e coli, sensitivities pending. I have called Dr Dale reis in [facility] who seems to be the physician managing the patients pancreatic Abscess, and he reviewed the images of the repeat CT scan, advised to continue the drain. Current Visit: Yes (4) Diabetes mellitus Status: Acute Assessment and plan: Insulin per sliding scale, monitor glucose glucose level high Increase lantus to 45, increase sliding scale to moderate dose Ok to go high dose sliding scale if needed (Glucose > 200) Pt tube feeds will be changed from continous to bolus. Current Visit: Yes (5) Diarrhea Status: Acute Assessment and plan: cdiff negative. Current Visit: Yes (6) Hypernatremia Status: Acute Assessment and plan: due to dehydration, on 250cc free water via G tube q 6 hrs , increase to 400cc every 6 hrs. d/c IVF Current Visit: Yes - Narrative A/P Narrative: DVT hep sq Diet glucerna Tube feeds, OK to transfer to [facility] status. Medical - PN: Qual - VTE Deep Vein Thrombosis/Pulmonary Embolism Present on Admission: No
[2016-04-11] MEDS ORDERED: ACETAMINOPHEN 325 MG TABLET PO PRN (12:54)
[2016-04-11] MEDS ORDERED: ACETAMINOPHEN 650 MG SUPP.RECT PR PRN (12:54)
[2016-04-11] MEDS ORDERED: ONDANSETRON 4 MG/2 ML VIAL IV PRN (12:54)
[2016-04-11] MEDS ORDERED: DEXTROSE 50% 50 ML VIAL IV PRN (12:54)
[2016-04-11] MEDS ORDERED: NALOXONE HCL 0.4 MG/ML VIAL IV PRN (12:54)
[2016-04-11] MEDS ORDERED: BISACODYL 10 MG SUPP.RECT PR PRN (12:54)
[2016-04-11] MEDS ORDERED: PROMETHAZINE 25 MG/ML VIAL IV PRN (12:54)
[2016-04-11] MEDS ORDERED: VANCOMYCIN 1,000 MG in 0.9 % SODIUM CHLORIDE 250 ML IV SCH (13:00)
--- NOTE | 2016-04-11 13:47 | General Surgery Progress Note ---
Subjective Patient reports: no new complaints, other (Uneventful progress and NO overnite events. Wound Care is ongoing. ) Narrative: Note initiated : 04/11/16 at 1:44 pm Service Date, if different from initiated Date: [] Patient: Amie Merchant 60 y/o M admitted on 04/08/16 for Weakness/Pneumonia, Sepsis, Hypoxic Resp Failure. Chief Complaint: [] Objective Temp Pulse Resp BP Pulse Ox 98.0 F 60 18 119/66 99 04/11/16 12:00 04/11/16 09:00 04/11/16 12:00 04/11/16 12:00 04/11/16 12:00 No Fever. VSS. HD stable. Soft abdomen. Drain sites are CDI.Drains patent. Left plantar and later 5 th toe decubitus pressure ulcer sites are Clean and Eschar demarcating well. I saw patient with RN and reviewed his wound care. Following patient whilst in hospital. - Additional Data Intake & Output - Last 24 hours: Intake & Output 04/09/16 04/10/16 04/11/16 04/12/16 05:59 05:59 05:59 05:59 Intake Total 50 / 300 1955 / 1955 4471 / 4471 1920 / 1920 Output Total 600 / 600 1615 / 1615 1837 / 1837 500 / 500 Balance -550 / -300 340 / 340 2634 / 2634 1420 / 1420 Weight 181 lb 186 lb 8 oz 186 lb - Labs 04/11/16 04:10 04/11/16 04:10 Diabetes panel 04/10/16 04/11/16 Range/Units 12:00 04:10 Sodium 157 H 151 H (133-145) mmol/L Potassium 4.1 4.5 (3.3-5.1) mmol/L Chloride 118 H 115 H (96-108) mmol/L Carbon Dioxide 27 24 (22-30) mmol/L BUN 42 H 37 H (8-23) mg/dl Creatinine 0.8 0.8 (0.7-1.2) mg/dl Glucose 410 H 357 H (70-105) mg/dL Calcium 9.1 8.7 (8.6-10.4) mg/dl AST 43 H (0-37) U/l ALT 60 H (0-40) U/l Alkaline Phosphatase 63 (39-117) U/L Total Protein 6.6 (5.9-8.4) gm/dL Albumin 2.9 L (3.2-5.2) gm/dL Triglycerides 197 H (<150) mg/dl Calcium panel 04/10/16 04/11/16 Range/Units 12:00 04:10 Calcium 9.1 8.7 (8.6-10.4) mg/dl Phosphorus 2.8 (2.7-4.5) mg/dL Albumin 2.9 L (3.2-5.2) gm/dL Pituitary panel 04/10/16 04/11/16 Range/Units 12:00 04:10 Sodium 157 H 151 H (133-145) mmol/L Potassium 4.1 4.5 (3.3-5.1) mmol/L Chloride 118 H 115 H (96-108) mmol/L Carbon Dioxide 27 24 (22-30) mmol/L BUN 42 H 37 H (8-23) mg/dl Creatinine 0.8 0.8 (0.7-1.2) mg/dl Glucose 410 H 357 H (70-105) mg/dL Calcium 9.1 8.7 (8.6-10.4) mg/dl Adrenal panel 04/10/16 04/11/16 Range/Units 12:00 04:10 Sodium 157 H 151 H (133-145) mmol/L Potassium 4.1 4.5 (3.3-5.1) mmol/L Chloride 118 H 115 H (96-108) mmol/L Carbon Dioxide 27 24 (22-30) mmol/L BUN 42 H 37 H (8-23) mg/dl Creatinine 0.8 0.8 (0.7-1.2) mg/dl Glucose 410 H 357 H (70-105) mg/dL Calcium 9.1 8.7 (8.6-10.4) mg/dl Total Bilirubin 0.2 (0.0-1.0) mg/dL AST 43 H (0-37) U/l ALT 60 H (0-40) U/l Alkaline Phosphatase 63 (39-117) U/L Total Protein 6.6 (5.9-8.4) gm/dL Albumin 2.9 L (3.2-5.2) gm/dL Medical - PN: A/P - Time Spent With Patient Total time spent is greater than 50% in coordination of care (as documented) at patient's floor/unit and/or counseling patient: (1) Pressure ulcer of left foot Status: Chronic Current Visit: Yes
[2016-04-11] MEDS: VANCOMYCIN 750 MG in 0.9 % SODIUM CHLORIDE 250 ML IV SCH ×2 (14:31→23:13)
[2016-04-11] MEDS ORDERED: INSULIN LISPRO 1 UNIT/0.01 ML UNIT SQ SCH (18:00)
[2016-04-11] MEDS: SIMVASTATIN 10 MG TABLET PT SCH (21:17)
[2016-04-11] MEDS: METOPROLOL TARTRATE 50 MG TABLET PT SCH (21:19)
[2016-04-12] MEDS: IPRATROPIUM/ALBUTEROL 3 ML AMPUL.NEB NEB SCH ×4 (01:47→18:33)
[2016-04-12] MEDS: PIPERACILLIN SODIUM/TAZOBACTAM 3.375 GM in DEXTROSE 5% IN WATER 50 ML IV SCH (05:50)
[2016-04-12] MEDS: 0.9 % SODIUM CHLORIDE 10 ML SYRINGE IV SCH ×3 (06:19→21:06)
[2016-04-12] MEDS: INSULIN LISPRO 1 UNIT/0.01 ML UNIT SQ SCH ×3 (06:23→17:55)
[2016-04-12] MEDS: methylPREDNISolone SOD SUCC 40 MG/ML VIAL IV SCH (06:24)
[2016-04-12 07:18] LABS: Basophils # (Auto) 0 K/mcL (0.0-0.3); Basophils % (Auto) 0.1 % (0.0-2.0); Eosinophils # (Auto) 0.1 K/mcL (0.0-0.7); Eosinophils % (Auto) 0.9 % (0.0-7.0); Granulocytes % (Auto) 79.2 % (38.0-78.0); Lymphocytes # (Auto) 1.4 K/mcL (1.5-4.8); Lymphocytes % (Auto) 13.6 % (15.5-49.0); Mean Cell Volume 81.7 fL (80.0-100.0); Mean Corpuscular HGB Conc 30.5 g/dL (31.0-36.0); Mean Corpuscular Hemoglobin 24.9 pg (26.0-34.0); Monocytes # (Auto) 0.7 K/mcL (0.1-0.9); Monocytes % (Auto) 6.2 % (1.0-9.0); Platelet Count 308 K/mcL (140-440); RBC 3.95 M/mcL (4.50-5.90); Red Cell Distribution Width 19.6 % (11.5-14.5)
[2016-04-12 08:05] LABS: ALT/SGPT 70 U/l (0-40); Albumin 2.9 gm/dL (3.2-5.2); Albumin/Globulin Ratio 0.8 (1.0-2.3); Alkaline Phosphatase 63 U/L (39-117); Bilirubin,Direct < 0.2 mg/dL (0.0-0.3); Blood Urea Nitrogen 31 mg/dl (8-23); Gamma Glutamyl Transpeptidase 43 U/L (8-61); Magnesium 2.1 mg/dL (1.6-2.5); Phosphorous 2.4 mg/dL (2.7-4.5)
[2016-04-12] MEDS: INSULIN GLARGINE, HUMAN 1 UNIT/0.01 ML SQ SCH (08:28)
[2016-04-12] MEDS: METOPROLOL TARTRATE 50 MG TABLET PT SCH ×2 (08:29→21:04)
[2016-04-12] MEDS: risperiDONE 0.25 MG TABLET PT SCH (08:30)
[2016-04-12] MEDS: CHLORHEXIDINE GLUCONATE 1 ML ORAL.SOL SWABMOUTH SCH ×2 (08:30→21:06)
[2016-04-12] MEDS: ENOXAPARIN 40 MG/0.4 ML SYRINGE SQ SCH (08:30)
[2016-04-12] MEDS: FAMOTIDINE/PF 20 MG/2 ML VIAL IV SCH ×2 (08:30→21:05)
[2016-04-12] MEDS: VITAMIN D3 1,000 UNIT TABLET PT SCH (08:31)
[2016-04-12] MEDS: HYDROcodone/APAP 10/325MG TABLET PO PRN ×2 (08:45→16:52)
[2016-04-12] MEDS ORDERED: DOXAZOSIN 1 MG TABLET PO SCH (09:00)
[2016-04-12] MEDS: MEROPENEM 1 GM in 0.9 % SODIUM CHLORIDE 100 ML IV SCH ×3 (10:18→22:30)
[2016-04-12] MEDS: DOXAZOSIN 4 MG TABLET PO SCH (10:19)
[2016-04-12] MEDS: VANCOMYCIN 500 MG in 0.9 % SODIUM CHLORIDE 100 ML IV SCH ×2 (11:59→21:05)
[2016-04-12] MEDS: VANCOMYCIN 750 MG in 0.9 % SODIUM CHLORIDE 250 ML IV SCH (12:45)
--- NOTE | 2016-04-12 14:46 | Internal Med Progress Note ---
Medical - PN: Subj Patient information: Note initiated : 04/12/16 at 2:44 pm Service Date, if different from initiated Date: [] Patient: Amie Merchant 60 y/o M admitted on 04/08/16 for Weakness/Pneumonia, Sepsis, Hypoxic Resp Failure. Chief Complaint: [] Interval history: patietn seen examined, no acute overnight events He is stable, endorses pain in abdomen, but no other complaints Still has significant secretions and needs suction. his pancreatic drain is still draiing, was some blood today AM, will monitor if does not clear, will repeat CT . I reviwed his labs, glucose, micorbiology. his Pancreatic abscess is growing MDRO Ecoli, sensitive to meropenum. Will change zosyn to meropenum, I will try to get in touch with an ID physician tomorrow to discuss the plan for this ecoli and if it would need to be treated. Pertinent ROS: poor communicator no cp, no sob cough present abdominal pain present no headaches. - Constitutional Vitals: Vital Signs Temp Pulse Resp BP Pulse Ox 97.9 F 61 12 150/77 99 04/12/16 12:00 04/12/16 13:08 04/12/16 13:08 04/12/16 12:00 04/12/16 12:00 Period Temp Pulse Resp BP Sys/Escobar Pulse Ox Last 24 Hr 97.3 F-97.9 F 60-90 10-16 149-158/64-77 93-100 Intake and Output 04/12/16 04/12/16 04/12/16 05:59 13:59 21:59 Intake Total 1520 / 1520 1100 / 1100 Output Total 975 / 975 600 / 600 Balance 545 / 545 500 / 500 Intake & Output: Intake & Output 04/12/16 04/12/16 04/12/16 05:59 13:59 21:59 Intake Total 1520 / 1520 1100 / 1100 Output Total 975 / 975 600 / 600 Balance 545 / 545 500 / 500 Intake: IV 300 / 300 250 / 250 Dextrose 5% in Water 50 50 / 50 50 / 50 ml @ 100 mls/hr IV Q6 [facility] with Zosyn 3.375 gm Rx#: [id number] Sodium Chloride 0.9% 100 100 / 100 ml @ 100 mls/hr IV Q12 [facility] with Vancomycin 500 mg Rx#:[id number] Sodium Chloride 0.9% 250 250 / 250 ml @ 250 mls/hr IV Q12 [facility] with Vancomycin 750 mg Rx#:[id number] Tube Feeding 420 / 420 420 / 420 GI Tube Flush 800 / 800 430 / 430 Output: Drainage 25 / Left Upper THAD Drain / Urine Catheter Amount 950 / 950 600 / 600 - Head Head exam: Present: atraumatic, normal inspection - Eye Eye exam: Present: conjunctival injection. Absent: periorbital tenderness, scleral icterus - ENT ENT exam: Present: mucous membranes moist - Respiratory Respiratory exam: Present: normal respiratory exam Additional comments: bibasilar crackles. - Cardiovascular Cardiovascular exam: Present: normal rate and rhythm, +S1, +S2 - GI/Abdominal GI/Abdominal exam: Present: normal bowel sounds, soft, tenderness (at site of Pancreatic tube. CT scan is neg. ) - Neurological Exam Additional comments: obyes commands, unchanged neurological status - Psychiatric Psychiatric exam: Absent: agitated, anxious - Skin Skin exam: Present: warm Medical - PN: Obj Da - Labs CBC & Chem 7: 04/12/16 04:00 04/12/16 04:00 Labs: Abnormal Lab Results 04/12/16 04/12/16 04/12/16 08:00 04:00 04:00 WBC RBC 3.95 L Hgb 9.8 L Hct 32.3 L MCV MCH 24.9 L MCHC 30.5 L RDW 19.6 H Gran % 79.2 H Lymph % (Auto) 13.6 L Gran # 8.3 H Lymph # 1.4 L Sodium 147 H Chloride BUN 31 H Glucose 275 H Uric Acid Phosphorus 2.4 L AST 41 H ALT 70 H Albumin 2.9 L Globulin Albumin/Globulin Ratio 0.8 L Prealbumin Triglycerides 193 H Vancomycin Trough 19.9 H 04/11/16 04/11/16 04/11/16 11:54 04:10 04:10 WBC 11.2 H RBC 3.87 L Hgb 9.6 L Hct 32.0 L MCV MCH 24.7 L MCHC 29.9 L RDW 20.2 H Gran % 81.8 H Lymph % (Auto) 12.8 L Gran # 9.2 H Lymph # 1.4 L Sodium 151 H Chloride 115 H BUN 37 H Glucose 357 H Uric Acid Phosphorus AST 43 H ALT 60 H Albumin 2.9 L Globulin Albumin/Globulin Ratio 0.8 L Prealbumin Triglycerides 197 H Vancomycin Trough 17.8 H 04/10/16 04/10/16 04/10/16 12:00 04:05 04:05 WBC RBC 3.98 L Hgb 9.9 L Hct 31.4 L MCV 79.0 L MCH 24.9 L MCHC RDW 19.8 H Gran % 79.5 H Lymph % (Auto) 14.5 L Gran # Lymph # 1.4 L Sodium 157 H 156 H Chloride 118 H 118 H BUN 42 H 43 H Glucose 410 H 387 H Uric Acid Phosphorus AST 41 H ALT 53 H Albumin 3.1 L Globulin 4.2 H Albumin/Globulin Ratio 0.7 L Prealbumin Triglycerides 153 H Vancomycin Trough 04/09/16 04/09/16 14:30 14:30 WBC RBC Hgb Hct MCV MCH MCHC RDW Gran % Lymph % (Auto) Gran # Lymph # Sodium 153 H Chloride 115 H BUN 45 H Glucose 408 H Uric Acid 8.1 H Phosphorus 4.8 H AST 42 H ALT 48 H Albumin 2.8 L Globulin 4.5 H Albumin/Globulin Ratio 0.6 L Prealbumin 17.9 L Triglycerides Vancomycin Trough Meds: Medications Acetaminophen (Tylenol) 650 mg PO Q4-6HP PRN PRN Reason: PAIN/FEVER > 101 Acetaminophen (Tylenol) 650 mg MT Q4-6HP PRN PRN Reason: PAIN/FEVER > 101 Acetaminophen/Hydrocodone Bitart ([place] 10/325mg) 1 tab PO Q4HP PRN PRN Reason: Pain Last Admin: 04/12/16 08:45 Dose: 1 tab Albuterol/Ipratropium (Duoneb) 3 ml NEB Q6HRT [facility] Last Admin: 04/12/16 13:07 Dose: 3 ml Bisacodyl (Dulcolax) 10 mg MT PRN PRN PRN Reason: Constipation Chlorhexidine Gluconate (Peridex) 15 ml SWABMOUTH BID [facility] Last Admin: 04/12/16 08:30 Dose: 15 ml Dextrose (Dextrose 50%) 0 ml IV UD PRN PRN Reason: Hypoglycemia Diagnostic Test (Pha) (Accu-Chek) 1 each FS Q6 [facility] PRN Reason: Protocol Last Admin: 04/12/16 12:06 Dose: 1 each Doxazosin Mesylate (Cardura) 2 mg PO DAILY [facility] Last Admin: 04/12/16 10:19 Dose: 2 mg Enoxaparin Sodium (Lovenox) 40 mg SQ DAILY [facility] Last Admin: 04/12/16 08:30 Dose: 40 mg Famotidine (Pepcid) 20 mg IV Q12 [facility] Last Admin: 04/12/16 08:30 Dose: 20 mg Meropenem 1 gm/ Sodium (Chloride) 100 mls @ 100 mls/hr IV Q8 [facility] Stop: 04/13/16 22:59 Last Infusion: 04/12/16 11:58 Dose: Infused Vancomycin HCl 500 mg/ Sodium (Chloride) 100 mls @ 100 mls/hr IV Q12 [facility] Last Infusion: 04/12/16 12:32 Dose: Infused Insulin Glargine (Lantus) 45 unit SQ DAILY [facility] Last Admin: 04/12/16 08:28 Dose: 45 unit Insulin Human Lispro (Humalog) 1 unit SQ Q6 [facility] PRN Reason: Protocol Last Admin: 04/12/16 12:06 Dose: 1 unit Methylprednisolone Sodium Succinate (Solu-Medrol) 40 mg IV DAILY [facility] Metoprolol Tartrate (Lopressor) 50 mg PT BID [facility] Last Admin: 04/12/16 08:29 Dose: 50 mg Naloxone HCl (Narcan) 0.1 mg IV Q2MIN PRN PRN Reason: Opiate Reversal Ondansetron HCl (Zofran) 4 mg IV Q4-6HP PRN PRN Reason: Nausea And Vomiting Promethazine HCl (Phenergan) 12.5 mg IV Q4-6HP PRN PRN Reason: Nausea And Vomiting Risperidone (Risperdal) 0.25 mg PT DAILY [facility] Last Admin: 04/12/16 08:30 Dose: 0.25 mg Simvastatin (Zocor) 10 mg PT HS [facility] Last Admin: 04/11/16 21:17 Dose: 10 mg Sodium Chloride (Saline Flush) 10 ml IV Q8 [facility] Last Admin: 04/12/16 06:19 Dose: 10 ml Vitamin D (Vitamin D3) 4,000 unit PT DAILY [facility] Last Admin: 04/12/16 08:31 Dose: 4,000 unit Medical - PN: A/P - Time Spent With Patient Total time spent is greater than 50% in coordination of care (as documented) at patient's floor/unit and/or counseling patient: (1) Severe sepsis Status: Acute Assessment and plan: patient tachycadia improved bp stable WBC stable tending down again, likely related to steroids? Current Visit: Yes (2) HCAP (healthcare-associated pneumonia) Status: Acute Assessment and plan: on vancomycin and zosyn changed to vanco and imipenum based on cultures from pancreatic drain. D3 of vanco, but low suspicion for MRSA, will plan only 5 d ays of vanco, and complete 7 days for combined zyosyn/ meropenum Current Visit: Yes (3) Pancreatic abscess Status: Acute Assessment and plan: Ct done and shows pancreatic abcess Drain in place Abdomen is tender to palpate, but Ct does not reveal perotitnitis culture sent and its growing e coli, MDRO sensitive to carbapenum, STart on meropenum, Call ID to see if we need to treat this and if yes, how long to continue. I have called Dr Dale reis in [facility] who seems to be the physician managing the patients pancreatic Abscess, and he reviewed the images of the repeat CT scan, advised to continue the drain. Current Visit: Yes (4) Diabetes mellitus Status: Acute Assessment and plan: Insulin per sliding scale, monitor glucose glucose level high lantus 45, high dose sliding scale High glucose is likely from steroids Steroid taper will help with this. Steroids tapered today, Current Visit: Yes (5) Hypernatremia Status: Acute Assessment and plan: due to dehydration, on 250cc free water via G tube q 6 hrs , increase to 400cc every 6 hrs. Na level much better, continue free water via G tube. Current Visit: Yes - Narrative A/P Narrative: Over all prognosis is not good, the patient is unable to clear his secretions well, and will need good suctino care, he cannot do that himself due to TBI, I have asked case management to see if we can get a suction device for patients family to use at home. patient feeding changed to bolus feeds so that they can be easily administered at home. Medical - PN: Qual - VTE Deep Vein Thrombosis/Pulmonary Embolism Present on Admission: No
[2016-04-12] MEDS: SIMVASTATIN 10 MG TABLET PT SCH (21:05)
[2016-04-13] MEDS: INSULIN LISPRO 1 UNIT/0.01 ML UNIT SQ SCH ×4 (00:11→23:28)
[2016-04-13] MEDS: IPRATROPIUM/ALBUTEROL 3 ML AMPUL.NEB NEB SCH ×4 (01:00→19:39)
[2016-04-13] MEDS: MEROPENEM 1 GM in 0.9 % SODIUM CHLORIDE 100 ML IV SCH ×2 (05:26→14:28)
[2016-04-13] MEDS: 0.9 % SODIUM CHLORIDE 10 ML SYRINGE IV SCH ×3 (05:36→20:45)
[2016-04-13 07:31] LABS: Basophils # (Auto) 0 K/mcL (0.0-0.3); Basophils % (Auto) 0.1 % (0.0-2.0); Eosinophils # (Auto) 0.2 K/mcL (0.0-0.7); Eosinophils % (Auto) 1.4 % (0.0-7.0); Granulocytes % (Auto) 68.7 % (38.0-78.0); Lymphocytes # (Auto) 3.2 K/mcL (1.5-4.8); Lymphocytes % (Auto) 24.5 % (15.5-49.0); Mean Cell Volume 79.7 fL (80.0-100.0); Mean Corpuscular HGB Conc 31.1 g/dL (31.0-36.0); Mean Corpuscular Hemoglobin 24.8 pg (26.0-34.0); Monocytes # (Auto) 0.7 K/mcL (0.1-0.9); Monocytes % (Auto) 5.3 % (1.0-9.0); Platelet Count 321 K/mcL (140-440); RBC 4.15 M/mcL (4.50-5.90); Red Cell Distribution Width 18.9 % (11.5-14.5)
[2016-04-13 08:22] LABS: ALT/SGPT 113 U/l (0-40); Albumin 2.6 gm/dL (3.2-5.2); Albumin/Globulin Ratio 0.7 (1.0-2.3); Alkaline Phosphatase 60 U/L (39-117); Bilirubin,Direct < 0.2 mg/dL (0.0-0.3); Blood Urea Nitrogen 30 mg/dl (8-23); Gamma Glutamyl Transpeptidase 52 U/L (8-61); Phosphorous 2.8 mg/dL (2.7-4.5)
[2016-04-13] MEDS: DOXAZOSIN 4 MG TABLET PO SCH (08:51)
[2016-04-13] MEDS: ENOXAPARIN 40 MG/0.4 ML SYRINGE SQ SCH (08:52)
[2016-04-13] MEDS: VITAMIN D3 1,000 UNIT TABLET PT SCH (08:52)
[2016-04-13] MEDS: FAMOTIDINE/PF 20 MG/2 ML VIAL IV SCH ×2 (08:53→20:36)
[2016-04-13] MEDS: INSULIN GLARGINE, HUMAN 1 UNIT/0.01 ML SQ SCH (08:54)
[2016-04-13] MEDS: METOPROLOL TARTRATE 50 MG TABLET PT SCH ×2 (08:54→20:36)
[2016-04-13] MEDS: CHLORHEXIDINE GLUCONATE 1 ML ORAL.SOL SWABMOUTH SCH ×3 (08:57→20:37)
[2016-04-13] MEDS: risperiDONE 0.25 MG TABLET PT SCH (08:57)
[2016-04-13] MEDS ORDERED: methylPREDNISolone SOD SUCC 40 MG/ML VIAL IV SCH (09:00)
[2016-04-13] MEDS ORDERED: 0.9 % SODIUM CHLORIDE 10 ML SYRINGE IV PRN ×2 (10:23→14:38)
[2016-04-13] MEDS: VANCOMYCIN 500 MG in 0.9 % SODIUM CHLORIDE 100 ML IV SCH ×2 (11:01→20:38)
[2016-04-13] MEDS ORDERED: INSULIN LISPRO 1 UNIT/0.01 ML UNIT SQ SCH (12:00)
--- NOTE | 2016-04-13 14:13 | Internal Med Progress Note ---
Medical - PN: Subj Patient information: Note initiated : 04/13/16 at 2:10 pm Service Date, if different from initiated Date: [] Patient: Amie Merchant 60 y/o M admitted on 04/08/16 for Weakness/Pneumonia, Sepsis, Hypoxic Resp Failure. Chief Complaint: [] Interval history: Patient seen examined no acute overnight events no new complaints patient at baseline mental status His glucose levels are improving but still high, his pain is well controlled with present pain regime. THe patient has Ecoli coming from the panceratic abscess. I called ID physician at [facility], to get his opinion on management of same. who noted It would be reasonable to treat this infection with 2 weeks of antibiotics. The drain will be in place. I will get a PICC line placed today, and he will be d/c home with picc with 2 weeks of invanz. The patient will need to follow up with his General surgeon who placed the drain hopefully. he is tolerating tube feeds well with minimal residue. Case discussed with case management, plan is to take patient home, and therefore need to set up equipment like suction to help manage the patients condition. Pertinent ROS: abdominal pain intermittent no chest pain, or headaches. - Constitutional Vitals: Vital Signs Temp Pulse Resp BP Pulse Ox 98.6 F 89 29 H 126/81 99 04/13/16 12:00 04/13/16 14:03 04/13/16 14:03 04/13/16 12:00 04/13/16 12:00 Period Temp Pulse Resp BP Sys/Escobar Pulse Ox Last 24 Hr 97.3 F-98.6 F 66-93 12-29 111-143/63-81 93-99 Intake and Output 04/13/16 04/13/16 04/13/16 05:59 13:59 21:59 Intake Total 1420 / 1420 980 / 980 Output Total 515 / 515 1255 / 1255 Balance 905 / 905 -275 / -275 Intake & Output: Intake & Output 04/13/16 04/13/16 04/13/16 05:59 13:59 21:59 Intake Total 1420 / 1420 980 / 980 Output Total 515 / 515 1255 / 1255 Balance 905 / 905 -275 / -275 Intake: IV 200 / 200 100 / 100 Sodium Chloride 0.9% 100 100 / 100 ml @ 100 mls/hr IV Q12 [facility] with Vancomycin 500 mg Rx#:[id number] Tube Feeding 420 / 420 480 / 480 GI Tube Flush 800 / 800 400 / 400 Output: Gastric Drainage 0 / 0 PEG 0 / 0 Drainage 5 Left Upper THAD Drain 5 Urine Catheter Amount 500 / 500 1250 / 1250 Other: # Bowel Movements 1 General appearance: average body habitus, no acute distress - Head Head exam: Present: atraumatic, normal inspection - Eye Eye exam: Absent: periorbital swelling, periorbital tenderness, scleral icterus - Respiratory Respiratory exam: Present: normal respiratory exam. Absent: accessory muscle use, rhonchi, stridor, wheezes - Cardiovascular Cardiovascular exam: Present: normal rate and rhythm, +S1, +S2 - GI/Abdominal GI/Abdominal exam: Present: normal bowel sounds, soft, tenderness (at site of drain. blood in the drain resolved. 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 ) Medical - PN: Obj Da - Labs CBC & Chem 7: 04/13/16 06:25 04/13/16 06:25 Labs: Abnormal Lab Results 04/13/16 04/13/16 04/13/16 08:03 06:25 06:25 WBC 13.0 H RBC 4.15 L Hgb 10.3 L Hct 33.0 L MCV 79.7 L MCH 24.8 L MCHC RDW 18.9 H Gran % Lymph % (Auto) Gran # 8.9 H Lymph # Sodium Chloride BUN 30 H Creatinine 0.6 L Glucose 185 H Phosphorus AST 75 H ALT 113 H Albumin 2.6 L Albumin/Globulin Ratio 0.7 L Triglycerides 162 H Vancomycin Trough 15.3 H 04/12/16 04/12/16 04/12/16 08:00 04:00 04:00 WBC RBC 3.95 L Hgb 9.8 L Hct 32.3 L MCV MCH 24.9 L MCHC 30.5 L RDW 19.6 H Gran % 79.2 H Lymph % (Auto) 13.6 L Gran # 8.3 H Lymph # 1.4 L Sodium 147 H Chloride BUN 31 H Creatinine Glucose 275 H Phosphorus 2.4 L AST 41 H ALT 70 H Albumin 2.9 L Albumin/Globulin Ratio 0.8 L Triglycerides 193 H Vancomycin Trough 19.9 H 04/11/16 04/11/16 04/11/16 11:54 04:10 04:10 WBC 11.2 H RBC 3.87 L Hgb 9.6 L Hct 32.0 L MCV MCH 24.7 L MCHC 29.9 L RDW 20.2 H Gran % 81.8 H Lymph % (Auto) 12.8 L Gran # 9.2 H Lymph # 1.4 L Sodium 151 H Chloride 115 H BUN 37 H Creatinine Glucose 357 H Phosphorus AST 43 H ALT 60 H Albumin 2.9 L Albumin/Globulin Ratio 0.8 L Triglycerides 197 H Vancomycin Trough 17.8 H 04/10/16 12:00 WBC RBC Hgb Hct MCV MCH MCHC RDW Gran % Lymph % (Auto) Gran # Lymph # Sodium 157 H Chloride 118 H BUN 42 H Creatinine Glucose 410 H Phosphorus AST ALT Albumin Albumin/Globulin Ratio Triglycerides Vancomycin Trough Meds: Medications Acetaminophen (Tylenol) 650 mg PO Q4-6HP PRN PRN Reason: PAIN/FEVER > 101 Acetaminophen (Tylenol) 650 mg [place] Q4-6HP PRN PRN Reason: PAIN/FEVER > 101 Acetaminophen/Hydrocodone Bitart ([place] 10/325mg) 1 tab PO Q4HP PRN PRN Reason: Pain Last Admin: 04/12/16 16:52 Dose: 1 tab Albuterol/Ipratropium (Duoneb) 3 ml NEB Q6HRT [facility] Last Admin: 04/13/16 13:47 Dose: 3 ml Bisacodyl (Dulcolax) 10 mg [place] PRN PRN PRN Reason: Constipation Chlorhexidine Gluconate (Peridex) 15 ml SWABMOUTH BID [facility] Last Admin: 04/13/16 11:14 Dose: Not Given Dextrose (Dextrose 50%) 0 ml IV UD PRN PRN Reason: Hypoglycemia Diagnostic Test (Pha) (Accu-Chek) 1 each FS Q6 [facility] PRN Reason: Protocol Last Admin: 04/13/16 12:30 Dose: 1 each Doxazosin Mesylate (Cardura) 2 mg PO DAILY [facility] Last Admin: 04/13/16 08:51 Dose: 2 mg Enoxaparin Sodium (Lovenox) 40 mg SQ DAILY [facility] Last Admin: 04/13/16 08:52 Dose: 40 mg Famotidine (Pepcid) 20 mg IV Q12 [facility] Last Admin: 04/13/16 08:53 Dose: 20 mg Heparin Sodium (Porcine) (Heparin Flush) 2 ml IV Q12 [facility] Meropenem 1 gm/ Sodium (Chloride) 100 mls @ 100 mls/hr IV Q8 [facility] Stop: 04/13/16 22:59 Last Infusion: 04/13/16 06:30 Dose: Infused Vancomycin HCl 500 mg/ Sodium (Chloride) 100 mls @ 100 mls/hr IV Q12 [facility] Last Admin: 04/13/16 11:01 Dose: 100 mls/hr Insulin Glargine (Lantus) 45 unit SQ DAILY [facility] Last Admin: 04/13/16 08:54 Dose: 45 unit Insulin Human Lispro (Humalog) 0 unit SQ Q6 [facility] PRN Reason: Protocol Last Admin: 04/13/16 12:32 Dose: 15 unit Methylprednisolone Sodium Succinate (Solu-Medrol) 20 mg IV DAILY [facility] Metoprolol Tartrate (Lopressor) 50 mg PT BID [facility] Last Admin: 04/13/16 08:54 Dose: 50 mg Naloxone HCl (Narcan) 0.1 mg IV Q2MIN PRN PRN Reason: Opiate Reversal Ondansetron HCl (Zofran) 4 mg IV Q4-6HP PRN PRN Reason: Nausea And Vomiting Promethazine HCl (Phenergan) 12.5 mg IV Q4-6HP PRN PRN Reason: Nausea And Vomiting Risperidone (Risperdal) 0.25 mg PT DAILY [facility] Last Admin: 04/13/16 08:57 Dose: 0.25 mg Simvastatin (Zocor) 10 mg PT HS [facility] Last Admin: 04/12/16 21:05 Dose: 10 mg Sodium Chloride (Saline Flush) 10 ml IV Q8 [facility] Last Admin: 04/13/16 05:36 Dose: 10 ml Sodium Chloride (Saline Flush) 10 ml IV UD PRN PRN Reason: FLUSH Vitamin D (Vitamin D3) 4,000 unit PT DAILY [facility] Last Admin: 04/13/16 08:52 Dose: 4,000 unit Medical - PN: A/P - Time Spent With Patient Total time spent is greater than 50% in coordination of care (as documented) at patient's floor/unit and/or counseling patient: (1) Severe sepsis Status: Acute Assessment and plan: patient tachycadia improved bp stable WBC trending up again, but clinically patient is improving monitor Reviewing hte patient notes from [place] it seems that there too they had issues with rising wbc, not related to infection monitor for now. Current Visit: Yes (2) HCAP (healthcare-associated pneumonia) Status: Acute Assessment and plan: on vanco and meropenum last day of antibiotic tomorrow for Hcap pna. Will still need abx for pancreatic abscess, Current Visit: Yes (3) Pancreatic abscess Status: Acute Assessment and plan: Ct done and shows pancreatic abcess Drain in place Abdomen is tender to palpate, but Ct does not reveal perotitnitis culture sent and its growing e coli, MDRO sensitive to carbapenum, STart on meropenum, discussed case with ID, 2 weeks of antibiotic reccommended. I have called Dr Dale reis in [facility] who seems to be the physician managing the patients pancreatic Abscess, and he reviewed the images of the repeat CT scan, advised to continue the drain. Current Visit: Yes (4) Diabetes mellitus Status: Acute Assessment and plan: Insulin per sliding s, glucose levels high but improving. lantus 45, high dose sliding scale High glucose is likely from steroids Steroid taper will help with this. Current Visit: Yes (5) Hypernatremia Status: Acute Assessment and plan: resolved, will likely need 300-350 cc free water q 6 hrs once discharged home continue with 400 cc for now. Current Visit: Yes Medical - PN: Qual - VTE Deep Vein Thrombosis/Pulmonary Embolism Present on Admission: No
[2016-04-13] MEDS ORDERED: ONDANSETRON 4 MG/2 ML VIAL IV PRN (14:38)
[2016-04-13] MEDS ORDERED: ACETAMINOPHEN 325 MG TABLET PO PRN (14:38)
[2016-04-13] MEDS ORDERED: DEXTROSE 50% 50 ML VIAL IV PRN (14:38)
[2016-04-13] MEDS ORDERED: ACETAMINOPHEN 650 MG SUPP.RECT PR PRN (14:38)
[2016-04-13] MEDS ORDERED: NALOXONE HCL 0.4 MG/ML VIAL IV PRN (14:38)
[2016-04-13] MEDS ORDERED: BISACODYL 10 MG SUPP.RECT PR PRN (14:38)
[2016-04-13] MEDS ORDERED: PROMETHAZINE 25 MG/ML VIAL IV PRN (14:38)
--- NOTE | 2016-04-13 15:36 | Event Note ---
I discussed the patient condition with the patients mother patient PNA is improving, Still has pancreatic abscess and will be needing 2 weeks of IV antibiotics Patients mother ok with the plan, Pt had initially refused picc, but later agreed The overall prognosis of the patient is however poor, the patient is unable to swallow, and unable to maintain his airway, needing frequent suctioning, the fact that he is on tube feeds also makes him a high risk of aspiration, and respiratory failure due to inability to clear secretions. I explained the aptients mother this and she seems to understand the gravity of the situation. The patient even though is getting better, can worsen any time due to his high risk factors for aspiration. The patients mother will consider hospice,but has not made her mind yet, will need to talk with other family members Patients code status reverified today, patient does want intubation, but no chest compressions,. No change since admission. Although the patient has improved since admission, his overall prognosis remains poor.
[2016-04-13] MEDS: SIMVASTATIN 10 MG TABLET PT SCH (20:36)
[2016-04-13] MEDS ORDERED: MEROPENEM 1 GM in 0.9 % SODIUM CHLORIDE 100 ML IV SCH (22:00)
[2016-04-14] MEDS: IPRATROPIUM/ALBUTEROL 3 ML AMPUL.NEB NEB SCH ×4 (01:35→17:44)
[2016-04-14] MEDS: HYDROcodone/APAP 10/325MG TABLET PO PRN ×2 (04:41→20:30)
[2016-04-14 05:10] LABS: Basophils # (Auto) 0 K/mcL (0.0-0.3); Basophils % (Auto) 0.2 % (0.0-2.0); Eosinophils # (Auto) 0 K/mcL (0.0-0.7); Eosinophils % (Auto) 0.3 % (0.0-7.0); Granulocytes % (Auto) 71.1 % (38.0-78.0); Lymphocytes # (Auto) 2.9 K/mcL (1.5-4.8); Lymphocytes % (Auto) 23.2 % (15.5-49.0); Mean Cell Volume 79.7 fL (80.0-100.0); Mean Corpuscular HGB Conc 31.3 g/dL (31.0-36.0); Monocytes # (Auto) 0.6 K/mcL (0.1-0.9); Monocytes % (Auto) 5.2 % (1.0-9.0); Platelet Count 320 K/mcL (140-440); RBC 4.19 M/mcL (4.50-5.90); Red Cell Distribution Width 19.7 % (11.5-14.5)
[2016-04-14 05:37] LABS: ALT/SGPT 106 U/l (0-40); Albumin 2.7 gm/dL (3.2-5.2); Albumin/Globulin Ratio 0.8 (1.0-2.3); Alkaline Phosphatase 64 U/L (39-117); Bilirubin,Direct < 0.2 mg/dL (0.0-0.3); Blood Urea Nitrogen 25 mg/dl (8-23); Gamma Glutamyl Transpeptidase 50 U/L (8-61); Magnesium 2.1 mg/dL (1.6-2.5); Uric Acid 4.2 mg/dL (2.5-8.0)
[2016-04-14] MEDS: INSULIN LISPRO 1 UNIT/0.01 ML UNIT SQ SCH ×3 (06:23→18:30)
[2016-04-14] MEDS: 0.9 % SODIUM CHLORIDE 10 ML SYRINGE IV SCH ×3 (06:25→22:37)
[2016-04-14] MEDS ORDERED: methylPREDNISolone SOD SUCC 40 MG/ML VIAL IV SCH ×2 (09:00)
[2016-04-14] MEDS: METOPROLOL TARTRATE 50 MG TABLET PT SCH ×2 (09:00→20:30)
[2016-04-14] MEDS: INSULIN GLARGINE, HUMAN 1 UNIT/0.01 ML SQ SCH (10:18)
[2016-04-14] MEDS: VITAMIN D3 1,000 UNIT TABLET PT SCH (10:19)
[2016-04-14] MEDS: ENOXAPARIN 40 MG/0.4 ML SYRINGE SQ SCH (10:19)
[2016-04-14] MEDS: DOXAZOSIN 4 MG TABLET PO SCH (10:21)
[2016-04-14] MEDS: CHLORHEXIDINE GLUCONATE 1 ML ORAL.SOL SWABMOUTH SCH ×2 (10:24→20:30)
[2016-04-14] MEDS: risperiDONE 0.25 MG TABLET PT SCH (10:25)
[2016-04-14] MEDS: FAMOTIDINE/PF 20 MG/2 ML VIAL IV SCH ×2 (16:09→20:30)
[2016-04-14] MEDS: VANCOMYCIN 500 MG in 0.9 % SODIUM CHLORIDE 100 ML IV SCH ×2 (16:09→20:30)
--- NOTE | 2016-04-14 17:42 | Internal Med Progress Note ---
Medical - PN: Subj Patient information: Note initiated : 04/14/16 at 5:40 pm Service Date, if different from initiated Date: [] Patient: Amie Merchant 60 y/o M admitted on 04/08/16 for Weakness/Pneumonia, Sepsis, Hypoxic Resp Failure. Chief Complaint: [] Interval history: patient seen examined, chart reviewed no acute issues The patient vitals, microbiology and labs reviewed The patient is at baseline mental status, able to follow commands, it seems he does understand but not able to communicate clearly He was supposed to get a PICC line placed today and then likely d/c home for IV ABX, however despite multiple attempts by the picc team and anesthesilogy, PICC placement was not possible The patient will therefore go to [facility] for picc placement under floroscopy. ONce we have an access the patient c an go home with IV ertapenum x 12-14 days. he will also have to follow up with his surgeon at [facility] at discharge. Pertinent ROS: Denies headache, dizziness Denies chest pain, palpitations Denies cough or shortness of breath abdominal pain present, no nausea or vomiting. - Constitutional Vitals: Vital Signs Temp Pulse Resp BP Pulse Ox 97.5 F L 69 22 138/62 94 04/14/16 08:00 04/14/16 13:39 04/14/16 13:39 04/14/16 08:00 04/14/16 08:00 Period Temp Pulse Resp BP Sys/Escobar Pulse Ox Last 24 Hr 96.8 F-97.5 F 61-95 16-22 128-138/62-86 94-99 Intake and Output 04/14/16 04/14/16 04/14/16 05:59 13:59 21:59 Intake Total 990 / 990 1220 / 1220 480 / 480 Output Total 760 / 760 30 / 30 Balance 230 / 230 1220 / 1220 450 / 450 Intake & Output: Intake & Output 04/14/16 04/14/16 04/14/16 05:59 13:59 21:59 Intake Total 990 / 990 1220 / 1220 480 / 480 Output Total 760 / 760 30 / 30 Balance 230 / 230 1220 / 1220 450 / 450 Intake: Oral 0 / 0 Tube Feeding 660 / 660 420 / 420 420 / 420 GI Tube Flush 330 / 330 800 / 800 60 / 60 Output: Drainage 30 / 30 Left Upper THAD Drain 30 / 30 Urine Catheter Amount 750 / 750 General appearance: cooperative, no acute distress - Head Head exam: Present: atraumatic, normal inspection - ENT ENT exam: Present: mucous membranes moist - Neck Neck exam: Present: normal inspection - Respiratory Respiratory exam: Present: normal respiratory exam. Absent: stridor, wheezes - Cardiovascular Cardiovascular exam: Present: normal rate and rhythm, +S1, +S2 - GI/Abdominal GI/Abdominal exam: Present: normal bowel sounds, soft, tenderness - Neurological Exam Neurological exam: Present: alert - Psychiatric Psychiatric exam: Absent: agitated, anxious - Skin Skin exam: Present: warm. Absent: rash Medical - PN: Obj Da - Labs CBC & Chem 7: 04/14/16 03:45 04/14/16 03:45 Labs: Abnormal Lab Results 04/14/16 04/14/16 04/13/16 03:45 03:45 08:03 WBC 12.4 H RBC 4.19 L Hgb 10.5 L Hct 33.4 L MCV 79.7 L MCH 25.0 L MCHC RDW 19.7 H Gran % Lymph % (Auto) Gran # 8.8 H Lymph # Sodium BUN 25 H Creatinine 0.6 L Glucose 199 H Phosphorus AST 53 H ALT 106 H Albumin 2.7 L Albumin/Globulin Ratio 0.8 L Triglycerides 178 H Vancomycin Trough 15.3 H 04/13/16 04/13/16 04/12/16 06:25 06:25 08:00 WBC 13.0 H RBC 4.15 L Hgb 10.3 L Hct 33.0 L MCV 79.7 L MCH 24.8 L MCHC RDW 18.9 H Gran % Lymph % (Auto) Gran # 8.9 H Lymph # Sodium BUN 30 H Creatinine 0.6 L Glucose 185 H Phosphorus AST 75 H ALT 113 H Albumin 2.6 L Albumin/Globulin Ratio 0.7 L Triglycerides 162 H Vancomycin Trough 19.9 H 04/12/16 04/12/16 04:00 04:00 WBC RBC 3.95 L Hgb 9.8 L Hct 32.3 L MCV MCH 24.9 L MCHC 30.5 L RDW 19.6 H Gran % 79.2 H Lymph % (Auto) 13.6 L Gran # 8.3 H Lymph # 1.4 L Sodium 147 H BUN 31 H Creatinine Glucose 275 H Phosphorus 2.4 L AST 41 H ALT 70 H Albumin 2.9 L Albumin/Globulin Ratio 0.8 L Triglycerides 193 H Vancomycin Trough Meds: Medications Acetaminophen (Tylenol) 650 mg PO Q4-6HP PRN PRN Reason: PAIN/FEVER > 101 Acetaminophen (Tylenol) 650 mg [place] Q4-6HP PRN PRN Reason: PAIN/FEVER > 101 Acetaminophen/Hydrocodone Bitart ([place] 10/325mg) 1 tab PO Q4HP PRN PRN Reason: Pain Last Admin: 04/14/16 04:41 Dose: 1 tab Albuterol/Ipratropium (Duoneb) 3 ml NEB Q6HRT [facility] Last Admin: 04/14/16 13:36 Dose: 3 ml Bisacodyl (Dulcolax) 10 mg [place] PRN PRN PRN Reason: Constipation Chlorhexidine Gluconate (Peridex) 15 ml SWABMOUTH BID [facility] Last Admin: 04/14/16 10:24 Dose: 15 ml Dextrose (Dextrose 50%) 0 ml IV UD PRN PRN Reason: Hypoglycemia Diagnostic Test (Pha) (Accu-Chek) 1 each FS Q6 [facility] PRN Reason: Protocol Last Admin: 04/14/16 13:05 Dose: 1 each Doxazosin Mesylate (Cardura) 2 mg PO DAILY [facility] Last Admin: 04/14/16 10:21 Dose: 2 mg Enoxaparin Sodium (Lovenox) 40 mg SQ DAILY [facility] Last Admin: 04/14/16 10:19 Dose: 40 mg Famotidine (Pepcid) 20 mg IV Q12 [facility] Last Admin: 04/14/16 16:09 Dose: Not Given Heparin Sodium (Porcine) (Heparin Flush) 2 ml IV Q12 [facility] Last Admin: 04/14/16 09:12 Dose: Not Given Vancomycin HCl 500 mg/ Sodium (Chloride) 100 mls @ 100 mls/hr IV Q12 [facility] Last Admin: 04/14/16 16:09 Dose: Not Given Insulin Glargine (Lantus) 45 unit SQ DAILY [facility] Last Admin: 04/14/16 10:18 Dose: 45 unit Insulin Human Lispro (Humalog) 0 unit SQ Q6 [facility] PRN Reason: Protocol Last Admin: 04/14/16 13:14 Dose: 9 unit Metoprolol Tartrate (Lopressor) 50 mg PT BID [facility] Last Admin: 04/14/16 09:00 Dose: 50 mg Naloxone HCl (Narcan) 0.1 mg IV Q2MIN PRN PRN Reason: Opiate Reversal Ondansetron HCl (Zofran) 4 mg IV Q4-6HP PRN PRN Reason: Nausea And Vomiting Prednisone (Prednisone) 10 mg PT [facility] Promethazine HCl (Phenergan) 12.5 mg IV Q4-6HP PRN PRN Reason: Nausea And Vomiting Risperidone (Risperdal) 0.25 mg PT DAILY [facility] Last Admin: 04/14/16 10:25 Dose: 0.25 mg Simvastatin (Zocor) 10 mg PT HS [facility] Last Admin: 04/13/16 20:36 Dose: 10 mg Sodium Chloride (Saline Flush) 10 ml IV UD PRN PRN Reason: FLUSH Sodium Chloride (Saline Flush) 10 ml IV Q8 [facility] Last Admin: 04/14/16 16:10 Dose: Not Given Vitamin D (Vitamin D3) 4,000 unit PT DAILY [facility] Last Admin: 04/14/16 10:19 Dose: 4,000 unit Medical - PN: A/P - Time Spent With Patient Total time spent is greater than 50% in coordination of care (as documented) at patient's floor/unit and/or counseling patient: (1) Severe sepsis Status: Acute Assessment and plan: resolved. high risk of relapse given pancreatic abscess and high chance of aspiration pneumonia. Current Visit: Yes (2) HCAP (healthcare-associated pneumonia) Status: Acute Assessment and plan: on vanco and meropenum last day of antibiotic today will d/c abx in AM and swtich to ertapenum. Current Visit: Yes (3) Pancreatic abscess Status: Acute Assessment and plan: continue drain, IV ertapenum x 14 days as per ID in [place] follow up with surgery in [place] as outpatient Current Visit: Yes (4) Diabetes mellitus Status: Acute Assessment and plan: on lantus and sliding scale insulin glucose still high however improving continue to montor, I expect the glucose to improve once he is weaned off steroids. Current Visit: Yes (5) Hypernatremia Status: Acute Assessment and plan: resolved, will likely need 300-350 cc free water q 6 hrs once discharged home continue with 400 cc for now. 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 he will need a home suction kit to help his family manage his secretions. Discussed same with case management who are working on getting home supplies set up. overall poor prognosis given G tube / severe dysphagia, will predispose him to recurrent pneumonia Medical - PN: Qual - VTE Deep Vein Thrombosis/Pulmonary Embolism Present on Admission: No
[2016-04-14] MEDS: SIMVASTATIN 10 MG TABLET PT SCH (20:30)
[2016-04-15] MEDS: INSULIN LISPRO 1 UNIT/0.01 ML UNIT SQ SCH ×3 (01:47→12:25)
[2016-04-15] MEDS: IPRATROPIUM/ALBUTEROL 3 ML AMPUL.NEB NEB SCH ×2 (01:59→07:34)
[2016-04-15] MEDS: 0.9 % SODIUM CHLORIDE 10 ML SYRINGE IV SCH (05:25)
[2016-04-15] MEDS ORDERED: predniSONE 10 MG TABLET PT SCH ×2 (08:00→08:02)
[2016-04-15] MEDS: DOXAZOSIN 4 MG TABLET PO SCH (08:11)
[2016-04-15] MEDS: INSULIN GLARGINE, HUMAN 1 UNIT/0.01 ML SQ SCH (08:12)
[2016-04-15] MEDS: ENOXAPARIN 40 MG/0.4 ML SYRINGE SQ SCH (08:13)
[2016-04-15] MEDS: METOPROLOL TARTRATE 50 MG TABLET PT SCH (08:13)
[2016-04-15] MEDS: CHLORHEXIDINE GLUCONATE 1 ML ORAL.SOL SWABMOUTH SCH (08:14)
[2016-04-15] MEDS: VITAMIN D3 1,000 UNIT TABLET PT SCH (08:14)
[2016-04-15] MEDS: FAMOTIDINE/PF 20 MG/2 ML VIAL IV SCH (08:14)
[2016-04-15] MEDS: risperiDONE 0.25 MG TABLET PT SCH (08:14)
[2016-04-15] MEDS: HYDROcodone/APAP 10/325MG TABLET PO PRN (08:15)
--- NOTE | 2016-04-15 08:27 | General Surgery Progress Note ---
Subjective Narrative: Note initiated : 04/15/16 at 8:25 am Service Date, if different from initiated Date: [] Patient: Amie Merchant 60 y/o M admitted on 04/08/16 for Weakness/Pneumonia, Sepsis, Hypoxic Resp Failure. Chief Complaint: []wound care note. I saw this patient in the morning along with the nursing staff on [facility] floor room 116. Patient is now transferred out of ICU. overall patient's pneumonia is improving. He still has pancreatic abscess which is draining to a percutaneous drain. Overall condition is stable but prognosis is guarded and poor. Left foot plantar pressure eschar under the fifth toe and in between the fifth and fourth toes is stable demarcating well. It is dry and clean Objective Temp Pulse Resp BP Pulse Ox 98.6 F 76 18 131/63 95 04/15/16 07:31 04/15/16 07:36 04/15/16 07:36 04/15/16 07:31 04/15/16 07:36 patient seen with nursing staff. Overall improving clinically. Prognosis is still poor in the long-term. from the wound. Perspective, the pressure ulcer eschar under the fifth toe and in between fifth and fourth toe is demarcating and well. - Additional Data Intake & Output - Last 24 hours: Intake & Output 04/13/16 04/14/16 04/15/16 04/16/16 05:59 05:59 05:59 05:59 Intake Total 3920 / 3920 3560 / 3560 3640 / 3640 Output Total 1655 / 1655 2470 / 2470 102 / 102 625 / 625 Balance 2265 / 2265 1090 / 1090 3538 / 3538 -625 / -625 Weight 189 lb 8 oz 190 lb 190 lb - Labs 04/14/16 03:45 04/14/16 03:45 Medical - PN: A/P - Time Spent With Patient Total time spent is greater than 50% in coordination of care (as documented) at patient's floor/unit and/or counseling patient: No changes to be made in the treatment from the wound care point of view. Continue present management. We will see this patient while he is still in the hospital. less than 15 minutes (1) Pressure ulcer of left foot Status: Chronic Current Visit: Yes
[2016-04-15] MEDS ORDERED: ERTAPENEM 1 GM in 0.9 % SODIUM CHLORIDE 50 ML IV SCH (09:00)
--- NOTE | 2016-04-15 12:39 | Discharge Summary ---
Medical - DS: Prov Patient information: Note initiated : 04/15/16 at 12:33 pm Service Date, if different from initiated Date: [] Patient: Amie Merchant 60 y/o M admitted on 04/08/16 for Weakness/Pneumonia, Sepsis, Hypoxic Resp Failure. Chief Complaint: [] Date of admission: 04/08/16 23:18 Discharge date: 04/15/16 Primary care physician: [f_Reg Prim Care Provider] Admitting clinician: Wayne Hernandez Consults: 04/09/16 08:56 Consult to Physician [CONS] Routine Comment: decub ulcer, left leg. Consulting Provider: Dmitri Moffett Reason For Exam: Physician to Consult Discharging clinician: Wayne Hernandez Medical - DS: Meds - Discharge Medications Prescriptions: HYDROcodone/ACETAMINOPHEN [[place] 10-325 Tablet] 1 each G-TUBE Q4HP PRN #60 tablet PRN Reason: Pain Active and Home Medications: Home Medications Azithromycin [Zithromax] 200 mg G-TUBE QAMAC 04/08/16 [History Confirmed Last Taken Unknown] Bisacodyl [Dulcolax] 10 mg [place] PRN PRN 04/08/16 [History Confirmed 04/09/16 Last Taken Unknown] Cholecalciferol (Vitamin D3) [Vitamin D3] 4,000 unit G-TUBE DAILY 04/08/16 [ History Confirmed 04/09/16 Last Taken Unknown] Doxazosin [Cardura] 2 mg G-TUBE HS 04/08/16 [History Confirmed 04/09/16 Last Taken Unknown] Furosemide [Lasix] 40 mg G-TUBE DAILY 04/08/16 [History Confirmed 04/09/16 Last Taken Unknown] Glucagon,Human Recombinant [Glucagon Emergency Kit] 1 mg IM PRN PRN 04/08/16 [ History Confirmed 04/09/16 Last Taken Unknown] HYDROcodone/ACETAMINOPHEN [[place] 10-325 Tablet] 1 - 2 each G-TUBE Q4HP PRN 04/08 [History Confirmed 04/09/16 Last Taken Unknown] Insulin Glargine, Human [Lantus] 30 unit SQ DAILY 04/08/16 [History Confirmed Last Taken Unknown] Insulin Regular, Human [HumuLIN R] 0 unit SQ Q6HRT PRN 04/08/16 [History Confirmed 04/09/16 Last Taken Unknown] Insulin Regular, Human [HumuLIN R] 7 unit SQ Q6HRT 04/08/16 [History Confirmed 04/09/16 Last Taken Unknown] Ipratropium/Albuterol [Duoneb] 3 ml NEB Q4HP PRN 04/08/16 [History Confirmed 03/14 Last Taken Unknown] Magnesium Hydroxide [Milk of Magnesia] 30 ml G-TUBE DAILY PRN 04/08/16 [History Confirmed 04/09/16 Last Taken Unknown] Menthol/Zinc Oxide [Calmoseptine Ointment Packet] 3.5 gm TP TID PRN 04/08/16 [ History Confirmed 04/09/16 Last Taken Unknown] Metoprolol Tartrate 50 mg G-TUBE TID 04/08/16 [History Confirmed 04/09/16 Last Taken Unknown] Na Phos,M-B/Na Phos,Di-Ba [Fleets Adult] 1 dose [place] PRN PRN 04/08/16 [History Confirmed 04/09/16 Last Taken Unknown] Nut.tx.gluc.intoler,Lac-Fr,Soy [Glucerna 1 Leno] 474 ml G-TUBE TID 04/08/16 [ History Confirmed 04/09/16 Last Taken Unknown] Omeprazole 20 mg G-TUBE DAILY 04/08/16 [History Confirmed 04/09/16 Last Taken Unknown] Polyethylene Glycol 3350 [Miralax] 17 gm G-TUBE DAILY 04/08/16 [History Confirmed 04/09/16 Last Taken Unknown] Pravastatin [Pravachol] 20 mg PO HS 04/08/16 [History Confirmed 04/09/16 Last Taken Unknown] Sennosides [Senna] 8.8 mg G-TUBE BID 04/08/16 [History Confirmed 04/09/16 Last Taken Unknown] predniSONE [Prednisone] 5 mg G-TUBE DAILY 04/08/16 [History Confirmed 04/09/16 Last Taken Unknown] risperiDONE [Risperidone] 0.25 mg G-TUBE DAILY 04/08/16 [History Confirmed 04/09 Last Taken Unknown] Active Medications Acetaminophen (Tylenol) 650 mg PO Q4-6HP PRN PRN Reason: PAIN/FEVER > 101 Acetaminophen (Tylenol) 650 mg WY Q4-6HP PRN PRN Reason: PAIN/FEVER > 101 Acetaminophen/Hydrocodone Bitart ([place] 10/325mg) 1 tab PO Q4HP PRN PRN Reason: Pain Last Admin: 04/15/16 08:15 Dose: 1 tab Albuterol/Ipratropium (Duoneb) 3 ml NEB Q6HRT [facility] Last Admin: 04/15/16 07:34 Dose: 3 ml Bisacodyl (Dulcolax) 10 mg WY PRN PRN PRN Reason: Constipation Chlorhexidine Gluconate (Peridex) 15 ml SWABMOUTH BID [facility] Last Admin: 04/15/16 08:14 Dose: 15 ml Dextrose (Dextrose 50%) 0 ml IV UD PRN PRN Reason: Hypoglycemia Diagnostic Test (Pha) (Accu-Chek) 1 each FS Q6 [facility] PRN Reason: Protocol Last Admin: 04/15/16 12:17 Dose: 1 each Doxazosin Mesylate (Cardura) 2 mg PO DAILY [facility] Last Admin: 04/15/16 08:11 Dose: 2 mg Enoxaparin Sodium (Lovenox) 40 mg SQ DAILY [facility] Last Admin: 04/15/16 08:13 Dose: 40 mg Famotidine (Pepcid) 20 mg IV Q12 [facility] Last Admin: 04/15/16 08:14 Dose: 20 mg Heparin Sodium (Porcine) (Heparin Flush) 2 ml IV Q12 [facility] Last Admin: 04/15/16 08:11 Dose: 2 ml Ertapenem 1 gm/ Sodium (Chloride) 50 mls @ 100 mls/hr IV Q24H [facility] Last Admin: 04/15/16 10:19 Dose: 100 mls/hr Insulin Glargine (Lantus) 45 unit SQ DAILY [facility] Last Admin: 04/15/16 08:12 Dose: 45 unit Insulin Human Lispro (Humalog) 0 unit SQ Q6 DWIGHT PRN Reason: Protocol Last Admin: 04/15/16 12:25 Dose: 9 unit Metoprolol Tartrate (Lopressor) 50 mg PT BID [facility] Last Admin: 04/15/16 08:13 Dose: 50 mg Naloxone HCl (Narcan) 0.1 mg IV Q2MIN PRN PRN Reason: Opiate Reversal Ondansetron HCl (Zofran) 4 mg IV Q4-6HP PRN PRN Reason: Nausea And Vomiting Prednisone (Prednisone) 5 mg PT QAC [facility] Promethazine HCl (Phenergan) 12.5 mg IV Q4-6HP PRN PRN Reason: Nausea And Vomiting Risperidone (Risperdal) 0.25 mg PT DAILY [facility] Last Admin: 04/15/16 08:14 Dose: 0.25 mg Simvastatin (Zocor) 10 mg PT HS [facility] Last Admin: 04/14/16 20:30 Dose: 10 mg Sodium Chloride (Saline Flush) 10 ml IV UD PRN PRN Reason: FLUSH Sodium Chloride (Saline Flush) 10 ml IV Q8 [facility] Last Admin: 04/15/16 05:25 Dose: Not Given Vitamin D (Vitamin D3) 4,000 unit PT DAILY [facility] Last Admin: 04/15/16 08:14 Dose: 4,000 unit Medical - DS: Hosp Hospital course: Mr. Merchant is a 60 year old male with h/o traumatic brain injury in , presented to the hospital with shortness of breath. He was admitted to the hospital with diagnosis of HCAP pneumonia The patient was a resident of [facility]. He was there for rehab after admission for pancreatic abscess. The patient has significant oropharyngeal dysphagia, and he also ahs G tube feeds and therefore has high risk for aspiration. The patient was treated for health care associated PNA with IV vancomycin and IV zosyn. The patient responded to the treatments very well, he completed 7 days of antibiotics. On the day of discharge his wbc count was trending down, he did not need any supplemental oxygen. The patient has h/o pancreatic abscess, seen by Dr Dale Cole surgery in [place]. He had a drain placed there in february. The patient seems to be stable from this, and its unlikely that this is the course of sepsis, the patients drain however is still draining, I discussed this case with his primary surgeon who noted that its likely that the patient will need the drain for a very long time. The patients family is aware and have been taught how to empty the drain and reapply it. The patient DRain cultures were positive for multi drug resistant E coli, sensitive to carbapenum. The patient case was discussed with ID physician in [place]. We decided that it would be best if we treat this with 2 weeks of IV antibiotics. Patient had a picc line placed , and patient started on ertapenum. He must follow up with Dr Dale cole as a outpatient for further management of his pancreatic abscess. Diabetes- Patient has diabetes and was on 30 units of lantus at home, here due to his sepsis and reactive airway disease he was given stress doses of steroids which flared up his glucose. He will be back on his home dose of prednisone of 5mg, I expect his glucose control to normalize. He will go back home on lantus 30 units and moderate sliding scale insulin. The patients will continue to get tube feeds every 6 hrs He will need to have water bolus via G tube every 6 hrs to maintain adequate hydration. The patient prognosis is overall poor, he is unable to clear his secretions due to severe oropharyngeal dysphagia and is therefore NPO, We are setting up a suction device at home. The fact that he has a G tube also increases his risk of aspiration. I have discussed this with his mother, we also offered hospice to the patient. It seems that she is not ready to make that decision yet. None the less the patient will be a high risk for readmission given his high risk of aspiration. The patient also has decub wond on the left leg, which is being followed by wound care, this seems to be doing well at this time. Dressing changes as per wound care consult. Discharge diagnosis: HCAP Pneumonia, Decub ulcer, pancreatic abscess. - Time Spent with Patient Total time spent providing and/or coordinating discharge services: Greater than 30 minutes Medical - DS: Exam - Constitutional Vitals: Vital Signs Temp Pulse Pulse Resp BP BP Pulse Ox 04/15/16 07:36 76 18 95 04/15/16 07:31 98.6 F 77 14 131/63 95 04/15/16 04:00 96.4 F L 87 16 118/61 96 04/15/16 00:00 96.2 F L 67 16 100/55 96 04/14/16 20:00 96.6 F L 85 16 111/62 96 04/14/16 17:45 80 22 04/14/16 16:00 97.5 F L 70 16 135/65 94 04/14/16 13:39 69 22 Intake and Output 04/14/16 04/15/16 04/15/16 21:59 05:59 13:59 Intake Total 1140 / 1140 1280 / 1280 480 / 480 Output Total 80 / 80 22 / 635 / 635 Balance 1060 / 1060 1258 / 1258 -155 / -155 Intake: Tube Feeding 780 / 780 420 / 420 420 / 420 GI Tube Flush 360 / 360 860 / 860 60 / 60 Output: Drainage 80 / 80 10 10 Left Upper THAD Drain 80 / 80 10 Urine Catheter Amount 625 / 625 Other: Weight 190 lb General appearance: cooperative, no acute distress - Head Head exam: Present: atraumatic, normal inspection - Respiratory Respiratory exam: Present: normal respiratory exam. Absent: stridor, wheezes - Cardiovascular Cardiovascular exam: Present: normal rate and rhythm, +S1, +S2 - GI/Abdominal GI/Abdominal exam: Present: normal bowel sounds - Neurological Exam Additional comments: At [facility] [place] - Psychiatric Psychiatric exam: Absent: agitated, anxious Medical - DS: A/P - Patient/Caregiver Discharge Instructions Activity: increase activity as tolerated Diet: NPO Additional Instructions: [facility] will be contacting you to evaluate and coordinate cares at home and to re-inforce teaching for the following. 1. Suctioning at home 2. Antibiotic infusions 3. Flushing PICC line 4. Emptying drain every 12 hours Home Health will change PICC line dressing change every 7 days. Be sure drain is emptied every 12 hours. When giving antibiotics, flush PICC line with 10 cc of Normal Saline (expelling air from syringe first), then aircraft life support fitter your IV antibiotic line to same PICC line flushed with the saline. When unhooking antibiotic from PICC line then flush again with 10 cc of Normal Saline then instill 2.5 cc of Heparin. [facility] is to deliver the antibiotics that has been ordered by the doctor. Dressing change to left foot: Cleanse with Normal saline, then apply Mepilex foam and change 2 times per week. Follow up with Dr Dale Cole, [place] surgery in 2-3 weeks, Follow up with PCP in 1 week Ambulance transfer. Go to the ER if worsening condition, shortness of breath. fever, chills. strict nothing per mouth. Patient extremely high risk for aspiration Free Water 300 - 350 cc q 6 hrs vis G tube. Glucerna 1.2, 420ml every 6 hrs, Give 30ml water before and after medications, Residual check prior to administration of medications/ Feeds/ Water bolus. Other Amb Orders: Wound Care Instructions Time Frame: 2 Weeks, Location: Determined By Patient - Problem Maintenance (1) Severe sepsis Status: Acute (2) HCAP (healthcare-associated pneumonia) Status: Acute (3) Pancreatic abscess Status: Acute (4) Diabetes mellitus Status: Acute (5) Hypernatremia Status: Acute - Follow up Plan Follow up with: Dmitri Moffett MD [Physician] - (Please call and schedule a follow up appointment to be seen in 1-2 weeks.) Rosa Mccormick MD [Primary Care Provider] - 04/21/16 10:50 am Disposition: Home Health Service Prognosis: Undetermined Rehab Potential: Undetermined I certify that the patient requires SNF services: No Medical - DS: Qual - VTE Deep Vein Thrombosis/Pulmonary Embolism Present on Admission: No
[2016-04-15] MEDS ORDERED: PNEUMOCOCCAL 23-VAL P-SAC VAC 0.5 ML VIAL IM ONE (13:28)
== END 2016-04-15 14:42 | disposition home health service (06) | DRG 871 ==
LOC: ED 18:01 → ICU 23:18
PROVIDERS: ADMIT Internal Medicine; ATTEND Internal Medicine

== ENCOUNTER 2016-04-17 10:34 | Inpatient (IN) ==
--- NOTE | 2016-04-17 11:10 | Emergency Department Note ---
SOB HPI - General Chief Complaint: Shortness of Breath/Dyspnea Stated Complaint: Shortness of breath Time Seen by Provider: 04/17/16 11:04 Source: EMS Mode of arrival: EMS Limitations: language barrier, physical limitation - History of Present Illness Patient discharged to home yesterday, caregivers called EMS this morning as they felt he was short of breath. He lives in a private residence, does have a history of quadriplegia as well as a history of traumatic brain injury, thus is not able to provide much history. EMS did state that the family had put some oxygen on him and his sats were 92% on 2 L at home. When they took the oxygen off his sats were in the mid 80s. He sounded wet, does have a history of pneumonia, was discharged to home on antibiotics, does have a PICC line in place to his right antecubital region. MD Complaint: shortness of breath - Related Data Home Medications Medication Instructions Recorded Confirmed Bisacodyl [Dulcolax] 10 mg MD PRN PRN 04/08/16 04/09/16 Cholecalciferol (Vitamin D3) 4,000 unit G-TUBE DAILY 04/08/16 04/09/16 [Vitamin D3] Doxazosin [Cardura] 2 mg G-TUBE HS 04/08/16 04/09/16 Furosemide [Lasix] 40 mg G-TUBE DAILY 04/08/16 04/09/16 Glucagon,Human Recombinant 1 mg IM PRN PRN 04/08/16 04/09/16 [Glucagon Emergency Kit] Insulin Glargine, Human [Lantus] 30 unit SQ DAILY 04/08/16 04/09/16 Ipratropium/Albuterol [Duoneb] 3 ml NEB Q4HP PRN 04/08/16 04/09/16 Menthol/Zinc Oxide [Calmoseptine 3.5 gm TP TID PRN 04/08/16 04/09/16 Ointment Packet] Metoprolol Tartrate 50 mg G-TUBE TID 04/08/16 04/09/16 Nut.tx.gluc.intoler,Lac-Fr,Soy 474 ml G-TUBE TID 04/08/16 04/09/16 [Glucerna 1 Leno] Omeprazole 20 mg G-TUBE DAILY 04/08/16 04/09/16 Pravastatin [Pravachol] 20 mg PO HS 04/08/16 04/09/16 Sennosides [Senna] 8.8 mg G-TUBE BID 04/08/16 04/09/16 predniSONE [Prednisone] 5 mg G-TUBE DAILY 04/08/16 04/09/16 risperiDONE [Risperidone] 0.25 mg G-TUBE DAILY 04/08/16 04/09/16 Previous Rx's Medication Instructions Recorded 0.9 % Sodium Chloride [Normal 10 ml IJ Q12 #84 syringe 04/15/16 Saline Flush] Ertapenem [INVanz] 1 gm IV Q24H #12 vial 04/15/16 Ertapenem [Invanz] 1 gm IV Q24H #0 vial 04/15/16 HYDROcodone/ACETAMINOPHEN [[place] 1 each G-TUBE Q4HP PRN #60 tablet 04/15/16 10-325 Tablet] Heparin Sodium,Porcine/Pf [Heparin 1 unit IV Q12H #42 syringe 04/15/16 IV Flush 1 Unit/ml Syr] Insulin Regular, Human [HumuLIN R] See Protocol SQ Q6H #20 ml 04/15/16 Allergies Allergy/AdvReac Type Severity Reaction Status Date / Time latex [LATEX] Allergy Mild RASH Verified 04/17/16 10:38 amantadine AdvReac Unknown Hallucinati Verified 04/17/16 10:38 ng oseltamivir AdvReac Unknown Hallucinati Verified 04/17/16 10:38 ons Review of Systems Limitations: ROS unobtainable due to patients medical condition Past Medical History - Past Medical History Source: nursing notes reviewed Medical history: Reports: asthma, COPD, dementia, diabetes, GERD, hyperlipidemia , hypertension, seizures, TIA, other (TBI, AAA, Pancreatic cyst, pressure ulcer) Surgical history ED: Reports: non-contributory, cholecystectomy, other ( pancreatic tube) Family history: Reports: non-contributory - Social History smoking status: Former smoker Alcohol use: Reports: None (does not drink now had a history of heavy usage of alcohol. in past. Quit 10 y ago) Drug use: Reports: none Physical Exam - General Limitations: language barrier, physical limitation General appearance: alert, in no apparent distress - Head Head exam: atraumatic, normocephalic, normal inspection - Eye Eye exam: Present: normal appearance, PERRL, EOMI. Absent: scleral icterus - ENT ENT exam: normal exam, normal oropharynx, mucous membranes moist, TM's normal bilaterally - Neck Neck exam: Present: normal inspection, full ROM, trachea midline. Absent: tenderness, meningismus, lymphadenopathy - Chest Chest inspection: Present: normal inspection, symmetric chest wall rise. Absent : tenderness - Respiratory Respiratory exam: Present: respiratory distress, other (Rales and rhonchi heard throughout) - Cardiovascular Cardiovascular exam: Present: regular rate, normal rhythm, normal heart sounds - Abdominal Exam Abdominal exam: Present: soft. Absent: distention - exam: Present: normal inspection. Absent: scrotal swelling - Extremities Exam Extremities exam: Present: pedal edema, other (e does have foot drop bilaterally , is not moving his extremities) - Back Exam Back exam: Present: muscle spasm - Neurological Exam Neurological exam: Present: alert, motor sensory deficit (has very limited movement of the left arm, can wiggle his fingers a little bit on the left hand, right arm is flaccid with exception of a slight bit of movement in the deltoidregion with lifting the arm.), other (Unable speak). Absent: reflexes normal - Psychiatric Psychiatric exam: Present: flat affect - Skin Skin exam: Present: warm, dry, intact, other (Ulceration over the left lateral foot region, small non-cellulitic). Absent: rash Course Vital Signs Temperature 97.4 F L 04/17/16 10:34 Pulse Rate 98 H 04/17/16 10:34 Respiratory Rate 22 04/17/16 10:34 Blood Pressure 139/78 04/17/16 10:34 Pulse Oximetry (%) 90 04/17/16 10:34 Temperature 97.4 F L 04/17/16 10:34 Pulse Rate 89 04/17/16 11:45 Respiratory Rate 17 04/17/16 11:45 Blood Pressure 108/68 04/17/16 11:45 Pulse Oximetry (%) 97 04/17/16 11:45 Shortness of Breath/Dyspnea - [facility] Narrative Medical decision making narrative: Discussed with Dr. Wilson, at this point, he has pneumonia , is hypoxic, has recurrent aspiration pneumonia, numerous medical problems. At this point, he will be admitted for further disposition. Final diagnosis is pneumonia, CHF. - Lab Data Result diagrams: 04/17/16 11:18 04/17/16 11:17 Disposition Clinical Impression: Congestive heart failure, HCAP (healthcare-associated pneumonia) Disposition: Home, Self-Care Condition: Serious Referrals: Rosa Mccormick MD [Primary Care Provider] -
[2016-04-17] MEDS ORDERED: IPRATROPIUM/ALBUTEROL 3 ML AMPUL.NEB NEB ONE (11:16)
[2016-04-17 11:55] LABS: Basophils # (Auto) 0 K/mcL (0.0-0.3); Basophils % (Auto) 0.1 % (0.0-2.0); Eosinophils # (Auto) 0.4 K/mcL (0.0-0.7); Eosinophils % (Auto) 2.1 % (0.0-7.0); Granulocytes % (Auto) 84.6 % (38.0-78.0); Lymphocytes # (Auto) 1.7 K/mcL (1.5-4.8); Lymphocytes % (Auto) 9.2 % (15.5-49.0); Mean Cell Volume 78.8 fL (80.0-100.0); Mean Corpuscular HGB Conc 31.3 g/dL (31.0-36.0); Mean Corpuscular Hemoglobin 24.6 pg (26.0-34.0); Monocytes # (Auto) 0.7 K/mcL (0.1-0.9); Platelet Count 299 K/mcL (140-440); RBC 4.18 M/mcL (4.50-5.90); Red Cell Distribution Width 20.9 % (11.5-14.5)
[2016-04-17 12:14] LABS: ALT/SGPT 115 U/l (0-40); Albumin/Globulin Ratio 0.8 (1.0-2.3); Alkaline Phosphatase 80 U/L (39-117); Blood Urea Nitrogen 25 mg/dl (8-23); C-Reactive Protein 3.5 mg/dl (0.0-0.8); proBNP 120.5 pg/ml (0-125)
--- NOTE | 2016-04-17 12:59 | XRay Report ---
CLINICAL INFORMATION: Dyspnea COMPARISON: 04/08/2016 FINDINGS: The heart is mildly enlarged, but unchanged. Mediastinum and pulmonary vessels are normal. PICC line tip overlies the SVC right atrial junction in satisfactory position. A infiltrate in the posterior right lower lobe, known from chest CT nine days ago, showed moderate improvement. It is now small IMPRESSION: Improvement in known posterior right lower lobe pneumonia - now small. Left lower lobe infiltrate has cleared Interpreted and Authenticated by: Wali Meyers 04/17/16
--- NOTE | 2016-04-17 13:16 | Internal Med History&Physical ---
Medical - H&P: HPI Patient information: Note initiated : 04/17/16 at 1:12 pm Service Date, if different from initiated Date: [] Patient: Amie Merchant a 60 y/o M admitted on for Shortness of breath. Chief Complaint: [] History of present illness: Mr. Merchant is a 60 year old male who was recently discharged from this facility to home with home health, for Pneumonia and pancreatic abscess. 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 In the ER the patient had elevated wbc count and new oxygen requirement, the patient seems to have aspirated again this AM/ last night. The patient also has mild rise in troponin , bnp is normal, The patient has h/o TBI, 1998 but has had a very prolonged and complex history over the last 6 months involving recurent PNA, prolonged intubation, LTAC stay, Pancreattitis and pancretic abscess. 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 I had reviewed hospice with the patients family at the last visit and explained the poor prognosis of this patient, given that he is unable to clear his respiratory secretions his G tube makes him very high risk of aspiration. The mother was understanding of the patients condition but was not ready for hospice placement then. This visit back to the ER is somewhat expected. Today I reviewed with the mother again her wishes in regards to what she would want, the patients mother is now agreeable to hospice treatment for the patient. the patient is now DNR/CC ROS unobtainable: due to mental status Medical - H&P: PMH Medical history: Medical History Congestive heart failure (Acute) HCAP (healthcare-associated pneumonia) (Acute) Community acquired pneumonia (Acute) Diabetes mellitus (Acute) Hypernatremia (Acute) PEG tube malfunction (Acute) Pancreatic abscess (Acute) Pancreatitis (Acute) Pancreatitis (Acute) Pneumonia (Acute) Postop check (Acute) Sepsis (Acute) Sepsis (Acute) Septic shock (Acute) Severe sepsis (Acute) Pressure ulcer of left foot (Chronic) Surgical history: pacretaic drain placed feb 2016 Family history: reviewed and not pertinent Social history: lives with mother at home TBI since 1998 Medical - H&P: Meds Home Medications Medication Instructions Recorded Confirmed Type Bisacodyl [Dulcolax] 10 mg MD PRN PRN 04/08/16 04/09/16 History Cholecalciferol (Vitamin D3) 4,000 unit G-TUBE DAILY 04/08/16 04/09/16 History [Vitamin D3] Doxazosin [Cardura] 2 mg G-TUBE HS 04/08/16 04/09/16 History Furosemide [Lasix] 40 mg G-TUBE DAILY 04/08/16 04/09/16 History Glucagon,Human Recombinant 1 mg IM PRN PRN 04/08/16 04/09/16 History [Glucagon Emergency Kit] Insulin Glargine, Human [Lantus] 30 unit SQ DAILY 04/08/16 04/09/16 History Ipratropium/Albuterol [Duoneb] 3 ml NEB Q4HP PRN 04/08/16 04/09/16 History Menthol/Zinc Oxide [Calmoseptine 3.5 gm TP TID PRN 04/08/16 04/09/16 History Ointment Packet] Metoprolol Tartrate 50 mg G-TUBE TID 04/08/16 04/09/16 History Nut.tx.gluc.intoler,Lac-Fr,Soy 474 ml G-TUBE TID 04/08/16 04/09/16 History [Glucerna 1 Leno] Omeprazole 20 mg G-TUBE DAILY 04/08/16 04/09/16 History Pravastatin [Pravachol] 20 mg PO HS 04/08/16 04/09/16 History Sennosides [Senna] 8.8 mg G-TUBE BID 04/08/16 04/09/16 History predniSONE [Prednisone] 5 mg G-TUBE DAILY 04/08/16 04/09/16 History risperiDONE [Risperidone] 0.25 mg G-TUBE DAILY 04/08/16 04/09/16 History Allergies Allergy/AdvReac Type Severity Reaction Status Date / Time levofloxacin [From Levaquin] Allergy Severe Verified 04/17/16 12:46 latex [LATEX] Allergy Mild RASH Verified 04/17/16 10:38 amantadine AdvReac Unknown Hallucinati Verified 04/17/16 10:38 ng codeine AdvReac Unknown Unknown Verified 04/17/16 12:46 oseltamivir AdvReac Unknown Difficulty Verified 04/17/16 12:46 Breathing Medical - H&P: Exam - Constitutional Vitals: Temp Pulse Resp BP Pulse Ox 97.4 F L 90 24 120/73 98 04/17/16 10:34 04/17/16 12:30 04/17/16 12:30 04/17/16 12:30 04/17/16 12:30 General appearance: cooperative, no acute distress - Head Head exam: Present: atraumatic, normal inspection - Respiratory Respiratory exam: Absent: stridor, wheezes Additional comments: bibasilar mild crackles tachypena - Cardiovascular Cardiovascular exam: Present: normal rate and rhythm, +S1, +S2 - GI/Abdominal GI/Abdominal exam: Present: normal bowel sounds, soft (G tube, Pancreatic drain in place. ) - Neurological Exam Neurological exam: Present: alert Additional comments: obeys commands at baseline mental function. - Skin Skin exam: Absent: rash, urticaria Medical - H&P: Reslt - Labs CBC & Chem 7: 04/17/16 11:18 04/17/16 11:17 Labs: Short CBC 04/17/16 Range/Units 11:18 WBC 18.8 H (4.5-11.0) K/mcL Hgb 10.3 L (13.5-16.5) g/dL Hct 32.9 L (41.0-55.0) % Plt Count 299 (140-440) K/mcL BMP 04/17/16 11:17 Sodium 139 Potassium 4.0 Chloride 100 Carbon Dioxide 25 BUN 25 H Creatinine 0.7 Glucose 302 H Calcium 8.8 Cardiac Enzymes 04/17/16 Range/Units 11:18 Troponin T 0.04 H* (0-0.03) ng/ml Liver Function 04/17/16 Range/Units 11:17 Total Bilirubin 0.2 (0.0-1.0) mg/dL AST 49 H (0-37) U/l ALT 115 H (0-40) U/l Alkaline Phosphatase 80 (39-117) U/L Albumin 3.0 L (3.2-5.2) gm/dL - ABG Interpretation Interpretation: normal Additional comments: Hypoxia Medical - H&P: A/P (1) Dysphagia Current visit: Yes Status: Acute (2) HCAP (healthcare-associated pneumonia) Current visit: Yes Status: Acute (3) Diabetes mellitus Current visit: No Status: Acute (4) Pancreatic abscess Current visit: No Status: Acute - Narrative A/P Narrative: The patient is back to the hospital with likely recurrent aspiration Plan is continue antibiotics at this time, mild rise in troponin likely related to sepsis, EKG does not show any significant Changes, The mother at bedside does not want any aggressive interventions. The patients mother who is the POA at bedside, I discussed with her again the poor prognosis of the patient and the fact that he cannot clear his own secretions, patient will be comfort care from now on. Plan for hospice on Wednesday pt to be admitted to swing bed status for comfort care measures, mother wants to take the patient home once home hospice is arranged DVT - hep sq Home meds to be resumed as appropriate DIet tube feeds vis G tube, Insulin testing ok per mother no labs, no radiology, will just complete the present course of antibiotics.
[2016-04-17] MEDS ORDERED: LORazepam 2 MG/ML VIAL IV PRN (15:31)
[2016-04-17] MEDS ORDERED: DEXTROSE 50% 50 ML VIAL IV PRN (15:31)
[2016-04-17] MEDS ORDERED: ONDANSETRON 4 MG/2 ML VIAL IV PRN (15:31)
[2016-04-17] MEDS ORDERED: HYDROmorphone 2 MG/ML SYRINGE IV PRN (15:31)
[2016-04-17] MEDS: ERTAPENEM 1 GM in 0.9 % SODIUM CHLORIDE 50 ML IV SCH (16:25)
[2016-04-17] MEDS ORDERED: INSULIN LISPRO 1 UNIT/0.01 ML UNIT SQ SCH (17:00)
[2016-04-17] MEDS: INSULIN LISPRO 1 UNIT/0.01 ML UNIT SQ SCH (18:15)
[2016-04-17] MEDS: IPRATROPIUM/ALBUTEROL 3 ML AMPUL.NEB NEB SCH (19:09)
[2016-04-17] MEDS ORDERED: CHLORHEXIDINE GLUCONATE 1 ML ORAL.SOL SWABMOUTH SCH (21:00)
[2016-04-17] MEDS ORDERED: INSULIN GLARGINE, HUMAN 1 UNIT/0.01 ML SQ SCH (21:00)
[2016-04-17] MEDS: METOPROLOL TARTRATE 50 MG TABLET PT SCH (22:01)
[2016-04-17] MEDS: risperiDONE 0.25 MG TABLET PT SCH (22:01)
[2016-04-17] MEDS: CHLORHEXIDINE GLUCONATE 1 ML ORAL.SOL SWABMOUTH SCH (22:02)
[2016-04-18] MEDS: IPRATROPIUM/ALBUTEROL 3 ML AMPUL.NEB NEB SCH ×4 (00:11→19:45)
[2016-04-18] MEDS: INSULIN LISPRO 1 UNIT/0.01 ML UNIT SQ SCH ×4 (01:10→18:39)
[2016-04-18] MEDS: predniSONE 5 MG TABLET PT SCH (09:22)
[2016-04-18] MEDS: METOPROLOL TARTRATE 50 MG TABLET PT SCH ×2 (09:23→20:47)
[2016-04-18] MEDS: PANTOPRAZOLE 40 MG PACKET PT SCH (09:23)
[2016-04-18] MEDS: CHLORHEXIDINE GLUCONATE 1 ML ORAL.SOL SWABMOUTH SCH ×2 (09:24→20:47)
[2016-04-18] MEDS: ENOXAPARIN 40 MG/0.4 ML SYRINGE SQ SCH (09:24)
[2016-04-18] MEDS: ERTAPENEM 1 GM in 0.9 % SODIUM CHLORIDE 50 ML IV SCH (09:33)
[2016-04-18] MEDS ORDERED: INSULIN GLARGINE, HUMAN 1 UNIT/0.01 ML SQ SCH (13:15)
[2016-04-18] MEDS: INSULIN GLARGINE, HUMAN 1 UNIT/0.01 ML SQ SCH (20:46)
[2016-04-18] MEDS: risperiDONE 0.25 MG TABLET PT SCH (20:47)
[2016-04-19] MEDS: IPRATROPIUM/ALBUTEROL 3 ML AMPUL.NEB NEB SCH ×4 (00:20→19:06)
[2016-04-19] MEDS: INSULIN LISPRO 1 UNIT/0.01 ML UNIT SQ SCH ×4 (00:28→18:06)
[2016-04-19] MEDS: PANTOPRAZOLE 40 MG PACKET PT SCH (07:11)
[2016-04-19] MEDS: predniSONE 5 MG TABLET PT SCH (09:06)
[2016-04-19] MEDS: ERTAPENEM 1 GM in 0.9 % SODIUM CHLORIDE 50 ML IV SCH (09:06)
[2016-04-19] MEDS: METOPROLOL TARTRATE 50 MG TABLET PT SCH ×2 (09:07→20:57)
[2016-04-19] MEDS: ENOXAPARIN 40 MG/0.4 ML SYRINGE SQ SCH (09:08)
[2016-04-19] MEDS: CHLORHEXIDINE GLUCONATE 1 ML ORAL.SOL SWABMOUTH SCH ×2 (09:08→20:57)
--- NOTE | 2016-04-19 11:25 | Event Note ---
I had a family meeting today in presence of the patients mother, ex and the patients daughter. I explained the patients poor prognosis, the fact that he has significant oropharyngeal dysphagia and is strict NPO, unable to clear his secretions well. He also has G tube feeds, and a MDR pancreatic abscess. The patient is high risk for recurrent admission for aspiration pneumonia and overall has very poor prognosis. HE lacks upper extremity strength due to his Traumatic brain injury to care and suction himself. The decision was made to place the patient under home hospice. Joana our case management will make the referral today to [facility] home hospice. Patient will likely be discharged home with home hospice tomorrow. Presently patient is in swing bed status, therefore no daily progress notes. He is comfort care only and has a PICC in place for IV antibiotics.
[2016-04-19] MEDS: risperiDONE 0.25 MG TABLET PT SCH (20:57)
[2016-04-19] MEDS: INSULIN GLARGINE, HUMAN 1 UNIT/0.01 ML SQ SCH (20:57)
[2016-04-20] MEDS: INSULIN LISPRO 1 UNIT/0.01 ML UNIT SQ SCH ×3 (00:30→12:36)
[2016-04-20] MEDS: IPRATROPIUM/ALBUTEROL 3 ML AMPUL.NEB NEB SCH ×3 (03:17→13:07)
[2016-04-20] MEDS: predniSONE 5 MG TABLET PT SCH (07:20)
[2016-04-20] MEDS: PANTOPRAZOLE 40 MG PACKET PT SCH (07:20)
[2016-04-20] MEDS: ENOXAPARIN 40 MG/0.4 ML SYRINGE SQ SCH (08:40)
[2016-04-20] MEDS: ERTAPENEM 1 GM in 0.9 % SODIUM CHLORIDE 50 ML IV SCH (08:40)
[2016-04-20] MEDS: CHLORHEXIDINE GLUCONATE 1 ML ORAL.SOL SWABMOUTH SCH (08:41)
[2016-04-20] MEDS: METOPROLOL TARTRATE 50 MG TABLET PT SCH (08:41)
--- NOTE | 2016-04-20 10:48 | Discharge Summary ---
Medical - DS: Prov Patient information: Note initiated : 04/20/16 at 10:47 am Service Date, if different from initiated Date: [] Patient: Amie Merchant 60 y/o M admitted on 04/17/16 for Shortness of breath. Chief Complaint: [] Date of admission: 04/17/16 14:45 Discharge date: 04/20/16 Primary care physician: [Dr. Rosa Mccormick] Admitting clinician: Wayne Hernandez Attending physician on discharge: Rosmery Huerta Medical - DS: Meds - Discharge Medications Prescriptions: LORazepam [Ativan] 2 mg PO Q4HP PRN #100 oral.eugene PRN Reason: Anxiety Ondansetron [Zofran Odt] 4 mg PO Q4-6H PRN #60 tablet PRN Reason: Nausea And Vomiting morphine 10 mg PO Q2HP PRN #120 oral.conc PRN Reason: Pain Active and Home Medications: Active Medications Albuterol/Ipratropium (Duoneb) 3 ml NEB Q6HRT [facility] Last Admin: 04/20/16 07:24 Dose: 3 ml Chlorhexidine Gluconate (Peridex) 15 ml SWABMOUTH BID [facility] Last Admin: 04/20/16 08:41 Dose: 15 ml Dextrose (Dextrose 50%) 0 ml IV UD PRN PRN Reason: Hypoglycemia Diagnostic Test (Pha) (Accu-Chek) 1 each FS Q6 [facility] Last Admin: 04/20/16 05:53 Dose: 1 each Enoxaparin Sodium (Lovenox) 40 mg SQ DAILY [facility] Last Admin: 04/20/16 08:40 Dose: 40 mg Heparin Sodium (Porcine) (Heparin Flush) 2 ml IV Q12 [facility] Last Admin: 04/20/16 10:11 Dose: 2 ml Hydromorphone HCl (Dilaudid) 0.5 mg IV Q2HP PRN PRN Reason: Pain Ertapenem 1 gm/ Sodium (Chloride) 50 mls @ 100 mls/hr IV DAILY [facility] Stop: 04/26/16 09:29 Last Admin: 04/20/16 08:40 Dose: 100 mls/hr Insulin Glargine (Lantus) 45 unit SQ HS [facility] Last Admin: 04/19/16 20:57 Dose: 45 unit Insulin Human Lispro (Humalog) 0 unit SQ Q6 [facility] PRN Reason: Protocol Last Admin: 04/20/16 05:53 Dose: 2 unit Lorazepam (Ativan) 0.5 mg IV Q2-4HP PRN PRN Reason: ANXIETY/SEDATION Metoprolol Tartrate (Lopressor) 50 mg PT BID [facility] Last Admin: 04/20/16 08:41 Dose: 50 mg Ondansetron HCl (Zofran) 4 mg IV Q4-6HP PRN PRN Reason: Nausea And Vomiting Pantoprazole Sodium (Protonix) 40 mg PT QAMAC [facility] Last Admin: 04/20/16 07:20 Dose: 40 mg Prednisone (Prednisone) 5 mg PT QAC [facility] Last Admin: 04/20/16 07:20 Dose: 5 mg Risperidone (Risperdal) 0.25 mg PT [facility] Last Admin: 04/19/16 20:57 Dose: 0.25 mg Medical - DS: Hosp Hospital course: Mr. Merchant is a 60 year old male ho is admittedon April 17, 2016 with apparent aspiration pneumonia. He had recently been discharged after treatment for aspiration pneumonia and pancreatic abscess. He has a history of past traumatic brain injury, and recent prolonged intubation with pancreatitis and pancreatic abscess. He cannot handle his own oral secretions, so continually aspirates. Hospice was suggested during his last admission, but his mother still wanted to focus on aggressive care. This time she brings him back, and he is clearly declining and now the patient and his mother are more willing to discuss hospice care. Today, the patient is telling me that he does have some abdominal pain he mostly answers by nodding yes or no. he really is not able to offer other complaints. He denies chest pain or shortness of breath. Neck shows no obvious JVD or lymphadenopathy. Cardiac exam shows regular rate and rhythm. lung exam is suboptimal, but there are no obvious rales, rhonchi, wheezes. Abdomen is soft but appears to have tenderness in the upper abdomen. There is a G-tube in place, as well as a pancreatic drain in place. There is no sign of surrounding cellulitis. Extremities: Show no significant edema. Neurologic exam: The patient appears to understand questions, but is mostly nonverbal. He has minimal movement of his arms . Assessment and plan: #1. Pulmonary. This patient presents with recurrent aspiration pneumonia, due to his inability to handle his own oral secretions, with ongoing aspiration. He is unable to suction himself because of lack of use of his arms. He has a very complicated medical history, and therefore hospice has been recommended, and accepted. #2. GI. History of pancreatitis and pancreatic abscess. He still has a drain in place, and continues Nicole believe a 10 day course of IV ertapenem. Since this is already in place for him to receive at home, he will continue these antibiotics until the supply is gone in a few days. -continue to care for both his G-tube and the pancreatic drain. The drain was connected to a THAD drain and can be changed once 2 times a day. #3. Hospice placement.Hospice will take over his care today. They have requestedthat we obtain an alternating pressure pad for comfort and continue home nebulizer treatments and suction, as well as home oxygen. They've also requested Zofran, liquid morphine, and Ativan, to help manage his symptoms, for comfort. -They will continue with PICC line dressing changes and other care, until antibiotics are finished, at which time they can discontinue the PICC line.- -Continue with current tube feedings. -We did request speech and physical therapy evaluations,just to see if there are other things we have to offer in terms of his end-of-life care. this visit took approximately 35 minutes today, to review the patient's records and test results, interview and examine him, review discharge planning with our team as well as after the hospice conference. Discharge diagnosis: recurrent aspiration pneumonia, inability to handle oral secretions, pancre Secondary discharge diagnosis: pancreatic abscess, traumatic brain injury with paraplegia. - Time Spent with Patient Total time spent providing and/or coordinating discharge services: Medical - DS: Exam - Constitutional Vitals: Vital Signs Temp Pulse Pulse Resp BP Pulse Ox 04/20/16 08:00 97.9 F 60 16 115/63 98 04/20/16 07:46 99 04/20/16 07:45 73 16 99 04/20/16 07:42 76 16 04/19/16 20:00 97.9 F 62 16 118/67 98 04/19/16 19:16 69 16 04/19/16 13:34 65 20 04/19/16 13:31 98 Intake and Output 04/19/16 04/20/16 04/20/16 21:59 05:59 13:59 Intake Total 2039 / 2039 1240 / 1240 300 / 300 Output Total 33 / 33 7 / 7 Balance 2006 1233 / 1233 300 / 300 Intake: Oral 0 / 0 Tube Feeding 840 / 840 840 / 840 GI Tube Flush 1200 / 1200 400 / 400 300 / 300 Output: Drainage 30 / 30 5 / 5 Left Upper Abdomen 30 / 30 5 / 5 # of times incontinent of 3 / 3 2 / 2 urine Other: Feeding Ability Total Assistance # Bowel Movements 0 Weight 187 lb Medical - DS: Data Labs on day of discharge: recent diagnostics: CBC shows a white blood cell count of 18,000, hemoglobin 10, hematocrit 32, platelets 299,000 Chemistry panel is notable for B1 of 25, glucose 302, AST of 49, ALT of 115 Troponin was elevated at 0.04 C-reactive protein was elevated at 3.5 hest x-ray from April 17, 2016:Showed mildly enlarged heart, with PICC line present. An infiltrate in the posterior right lower lobe known from a previous chest CT, showed moderate improvement.eft lower lobe infiltrate had cleared. Medical - DS: A/P - Patient/Caregiver Discharge Instructions Activity: resume usual activities as tolerated Diet: Consistent Carbohydrate, NPO Additional Instructions: #1. See under assessment and plan above. The patient is continue with nebulizers at home as needed, oxygen as needed, suctioning as needed. Zofran, Ativan, morphine as needed. PICC line care, as well as care of his G-tube and pancreatic drainage toas needed. Continue tube feedings as he is receiving here in the hospital. PT and speech therapy evaluations.Continue IV ertapenem as per prescription at home, until completed. Then discontinue PICC line. Alternating pressure pad for comfort. -Admit to home hospice for end-of-life care. Prescriptions: LORazepam [Ativan] 2 mg PO Q4HP PRN #100 oral.eugene PRN Reason: Anxiety Ondansetron [Zofran Odt] 4 mg PO Q4-6H PRN #60 tablet PRN Reason: Nausea And Vomiting morphine 10 mg PO Q2HP PRN #120 oral.conc PRN Reason: Pain Other Amb Orders: Physical Therapy at Discharge - General Location: Determined By Patient - Follow up Plan Follow up with: Rosa Mccormick MD [Primary Care Provider] - Disposition: Hospice - Home Prognosis: Critical Rehab Potential: Critical I certify that the patient requires SNF services: No Overall status at discharge: patient is not back to baseline Medical - DS: Qual - VTE Deep Vein Thrombosis/Pulmonary Embolism Present on Admission: No
== END 2016-04-20 14:05 | disposition hospice, home (50) | DRG 177 ==
LOC: ED 10:34 → MEDSUR 14:40 → SUATTDRO 14:45 → MEDSUR 14:45
PROVIDERS: ADMIT Internal Medicine; ATTEND Internal Medicine